=== PATIENT | female | born 1980 | race African-American/Black ===

== ENCOUNTER 2025-06-03 20:40 | Emergency (ER) | payer OTHER, SELFPAY ==
--- NOTE | ~2025-06-03 | CT_ITS ---
EXAMINATION: CT brain wo con DATE: 06/04/2025 00:29 INDICATION: Headache. Neck pain radiating to right arm. TECHNIQUE: Computed tomography (CT) of the head was performed without intravenous contrast. The dose- length product was 681.00 mGy-cm. Automated exposure control and iterative reconstruction technique w ere employed. COMPARISON: None FINDINGS: Status post suboccipital craniotomy with associated surgical changes. Brain parenchymal vol ume is otherwise unremarkable. No acute intracranial hemorrhage, infarction, mass or mass effect. No ventriculomegaly or midline shift. Basilar cisterns are patent. Paranasal sinuses and mastoids are pn eumatized. IMPRESSION: 1. No acute intracranial abnormality. Reviewed, dictated and finalized at location A.
--- NOTE | ~2025-06-03 | CT_ITS ---
EXAMINATION: CT cervical spine wo con DATE: 06/04/2025 00:30 INDICATION: Neck pain. Headache. TECHNIQUE: Computed tomography (CT) of the cervical spine was performed without intravenous contrast. The dose-length product was 334 mGy-cm. Automated exposure control and iterative reconstruction tech nique were employed. COMPARISON: None FINDINGS: Status post suboccipital craniotomy with posterior decompression of C1. Straightening of ce rvical lordosis. Vertebral body heights are maintained. No acute fracture, subluxation or dislocation . No evidence for perched facet. Odontoid process is normal. Craniovertebral junction within normal l imits. Thyroid gland grossly unremarkable. There is cervical lymphadenopathy, likely reactive. There is an anterior mediastinal soft tissue, nonspecific. Lung apices are normal. There is mild multilevel uncinate degenerative change. Mild levocurvature of the cervical spine. IMPRESSION: 1. No acute abnormality of the cervical spine. Reviewed, dictated and finalized at location A.
--- OUTSIDE RECORDS SUMMARY | 2025-06-03 20:43 | XMS_ITS | Clinical Summary ---
Author Organization [facility] Address [address] [place] [address] Phone Care Team Providers Care Senior Ios Developer Name Role Phone Rand Field APRN, WATERPROOFER HELPER Unavailable + [phone] Favian Blanton MD Unavailable [phone] Christiano Camacho PAC Primary Care Provider + [phone] Juancho Smith MD Unavailable [phone] Allergies Active Allergy Reactions Criticality Noted Date Comments Diphenhydramine Itching,Rash 06/26/2023 Fentanyl Other (see Comments) Low 05/31/2021 Sumatriptan Hives,Rash,Swelling High 01/22/2017 Iodinated Contrast Media Swelling,Hives, Shortness of Breath,Other (see Comments) High 05/23/2015 Morphine Hives,Itching,Other (see Comments) High 05/18/2017 Headache Metoclopramide Hives 07/10/2023 Ketorolac Tromethamine Hives,Itching High 05/18/2017 Medications ondansetron (ZOFRAN-ODT) 4 MG TABLET DISPERSIBLEIndic ations:Migraine without status migrainosus, not intractable, unspecified migraine type Take 1 Tablet by mouth every 8 hours as needed for Nausea - 1st line. 30 Tablet 1 3 Active traMADol (ULTRAM) 50 MG TabletIndication s:Migraine without status migrainosus, not intractable, unspecified migraine type Take 1 Tablet by mouth every 8 hours as needed for Severe pain. 30 Tablet 3 Active Additional Information Patient taking differently:50 mg Oral2 TIMES DAILY, Reported on 02/05/2024 senna 8.6 MG TabletIndication s:Drug-induced constipation Take 1 Tablet by mouth daily as needed for Constipation - 1st line. 30 Tablet 4 Active topiramate (TOPAMAX) 25 MG TabletIndication s:Chronic migraine without aura, with intractable migraine, so stated, with status migrainosus TAKE 1 TABLET BY MOUTH TWICE DAILY 60 Tablet 4 Active methylPREDNISolo ne (MEDROL DOSPACK) 4 MG Tablet Therapy PackIndications: Chronic migraine without aura, with intractable migraine, so stated, with status migrainosus Take 1 Tablet by mouth See Admin Instructions. 6 p.o day one, 5 p.o. Day two, 4 p.o. Day three, 3 p.o. Day 4, 2 p.o. Day 5, 1 p.o. Day 6 21 Tablet 4 Active divalproex (DEPAKOTE) 125 MG Tablet Delayed ResponseIndicati ons:Chronic migraine without aura, with intractable migraine, so stated, with status migrainosus,Othe r generalized epilepsy, not intractable, without status epilepticus Take 1 Tablet by mouth in the morning and at bedtime. 270 Tablet 3 4 Active Allergy Relief 10 MG TabletIndication s:Non-seasonal allergic rhinitis, unspecified trigger TAKE ONE TABLET BY MOUTH DAILY 30 Tablet 4 Active Active Problems Problem Noted Date Diagnosed Date Anemia 04/18/2024 Thalassemia 04/18/2024 History of Cristian-en-Y gastric bypass 06/26/2023 Hypertension 06/26/2023 Overview (06/26/2023): Hypertension Seizure disorder 06/26/2023 Syncope 12/03/2020 Iron deficiency anemia 12/03/2020 Menorrhagia with regular cycle 12/03/2020 Periumbilical mass 12/03/2020 Bipolar affective disorder, current episode mixe d 10/05/2020 Depression 10/05/2020 Anxiety 10/05/2020 Nonintractable epilepsy without status epileptic us 10/05/2020 Migraine without status migrainosus, not intract able 10/05/2020 Chronic low back pain 10/05/2020 Schizoaffective disorder, bipolar type 9 Resolved Problems Problem Noted Date Diagnosed Date Resolved Date Dizziness 12/03/2020 06/26/2023 Generalized abdominal pain 12/03/2020 0 06/26/2023 Encounters Date Type Department Care Team Description 05/30/2025 [facility] [address] [place] [address] Christiano Camacho, PAC from Last 3 Months Immunizations Immunization Administration Dates Next Due MMR Vaccine 11/16/1993 TD VACCINE 11/16/1993 Family History Medical History Relation Name Comments No Known Problems Father No Known Problems Maternal Grandfather Diabetes Maternal Grandmother Hypertension Maternal Grandmother Lupus Maternal Grandmother Hypertension Mother Stroke Mother mini stroke No Known Problems Paternal Grandfather No Known Problems Paternal Grandmother No Known Problems Sister Relation Name Status Comments Father Alive Maternal Grandfather Maternal Grandmother Alive Mother Alive Paternal Grandfather Paternal Grandmother Sister Alive Social History Tobacco Use Types Packs/Day Years Used Date Smoking Tobacco: Never Smokeless Tobacco: Never Tobacco Cessation:Counseling Given: Not Answered Alcohol Use Standard Drinks/Week Comments No 0 (1 standard drink = 0.6 oz pur e alcohol) PHQ-2 Answer Date Recorded PHQ-2 Score 1 07/16/2019 Education Answer Date Recorded What is the highest level of school you have completed or the highest degree you have received? Some college, no degree 10/01/2020 Sexually Active Control Partners Comments Not Currently Comments No Sex and Gender Information Value Date Recorded Sex Assigned at Female 06/26/2023 10:42 AM CDT Legal Sex Female 8:56 PM CDT Gender Identity Female 06/26/2023 10:42 AM CDT Sexual Orientation Not on file Occupation Industry Job Start Date Job End Date Unemployed Not on file Not on file Not on file Last Filed Vital Signs Vital Sign Reading Time Taken Comments Blood Pressure 125/81 05/20/2024 9:40 AM CDT Pulse 67 05/20/2024 9:40 AM CDT Temperature 36.6 C (97.8 F) 05/20/2024 9:40 AM CDT Respiratory Rate 16 05/20/2024 9:40 AM CDT Oxygen Saturation 100% 05/20/2024 9:40 AM CDT Inhaled Oxygen Concentration - - Weight 77.1 kg (170 lb) 06/04/2024 11:06 AM CDT per patient Height 162.6 cm (5' 4) 06/04/2024 11:06 AM CDT Body Mass Index 29.18 06/04/2024 11:06 AM CDT Plan of Treatment Health Maintenance Due Date Last Done Comments Hepatitis C Virus (HCV) Screening 1978 Mammogram 1978 TdaP Immunization 1978 Meningococcal Immunization ( ACWY) (1 - Risk 2-dose series) 1980 Hepatitis B Immunization (1 of 3 - 19+ 3-dose series) 1997 Pneumococcal Immunization Co mbined (1 of 2 - PCV) 1997 Pap Smear 1999 Cervical Cancer Screening (CCS) 2008 HPV/Cotest 2008 Discussion re Starting/Frequ ency of Mammograms 2018 Cologuard 2023 Immunochemical Fecal Occult Blood 2023 021 SARS-COV-2 Immunization ( season) 2024 Influenza Immunization (#1) 2025 Colonoscopy 02/24/2031 02/24/2021 Colorectal Cancer Screening 02/24/2031 Respiratory Syncytial Virus (RSV) Immunization (Adult) (1 - 1-dose 75+ series) 2053 DTaP/Tdap/Td Immunization Discontinued 11/16/1993 Human Papillomavirus (HPV) Immunization Aged Out No longer eligible b ased on patient's age to complete this topic Rotavirus Immunization Aged Out No lo nger eligible based on patient's age to complete this topic Insurance MEDICAID [place] Advance Directives Documents on File Type Date Recorded Patient Aerospace Project Engineer Expl anation POLST/POST/SC DNR 04/16/2019 3:39 AM POLST (08-07-2015) POLST/POST/SC DNR 03/08/2019 3:43 AM polst 03/07/2019 * Full Code (Latest Code Status on File) Date Activated Date Inactivated Comments 04/16/2019 5:35 AM 04/18/2019 4:04 PM * Full Code Date Activated Date Inactivated Comments 11/12/2017 2:37 PM 11/14/2017 5:12 PM CPR-Full Tomer atment: FULL ARREST: Attempt Resuscitation/CPR wit intubation and mechanical ventilation. PRE-ARREST: Use entire range of life support measures to stabilize the patient. Care Teams Senior Ios Developer Relationship Specialty Start Date End Date Christiano Camacho, PAC [address] [place] [address] PCP - General Physician Jd Edwards Consultant 02/05/24 Rand Field, OPERATIONS RESEARCH SCIENTIST, WATERPROOFER HELPER [address] [place] [address] Nurse Practitioner Advanced Practice Nurse 12/11/23 Favian Blanton MD [address] [place] [address] Consulting Physician Neurology 08/22/23 Juancho Smith MD [address] [address] Consulting Physician General Surgery 05/22/24
--- OUTSIDE RECORDS SUMMARY | 2025-06-03 20:43 | XMS_ITS | Clinical Summary ---
Author Organization [facility] Address [address] [place] [address] Care Team Providers Care Rn Acls Name Role Phone Unavailable Primary Care Provider Unavailabl e Source Comments [facility],non-owned Affiliates and Associated Physician Practices is amultiple site organization consisting of ambulatory clinics and hospital sitesin [place], [place], [place] and [place]. This disclosure is being madepursuant to the Care Everywhere program and may not contain all information available regarding this patient. Last updated 18.[facility] [employer] Allergies Active Allergy Reactions Criticality Noted Date Comments Sumatriptan Rash Medium 12/26/2013 Contrast-Iodinated Agents For Ct/Other 08/06/2015 Ketorolac 01/30/2015 Medications * Be aware that medications may not be up to date on this document. Alwaysverify current medications with the patient. diclofenac sodium EC (VOLTAREN) 75 MG tablet Take 1 Tab by mouth 2 times daily. 20 Tab 0 02/01/2015 Active famotidine (PEPCID) 20 MG tablet Take 1 Tab by mouth 2 times daily 20 Tab 0 08/19/2015 Active metoclopramide, disintegrating, (METOZOLV ODT) 10 MG tablet Take 1 Tab by mouth every 6 hours as needed for Nausea/Vomi ting 10 Tab 0 08/19/2015 Active Social History Tobacco Use Types Packs/Day Years Used Date Smoking Tobacco: Never Smokeless Tobacco: Never Alcohol Use Standard Drinks/Week Comments No 0 (1 standard drink = 0.6 oz pur e alcohol) Comments Unknown Sex and Gender Information Value Date Recorded Sex Assigned at Female 04/10/2024 3:58 PM CDT Legal Sex Female 3:02 AM RAG COLLECTOR Gender Identity Female 04/10/2024 3:58 PM CDT Sexual Orientation Not on file Last Filed Vital Signs Vital Sign Reading Time Taken Comments Blood Pressure 136/85 08/19/2015 7:58 PM CDT Pulse 67 08/19/2015 7:51 PM CDT Temperature 37 C (98.6 F) 08/19/2015 11:23 AM CDT Respiratory Rate 20 08/19/2015 7:51 PM CDT Oxygen Saturation 99% 08/19/2015 7:14 PM CDT Inhaled Oxygen Concentration - - Weight 81.6 kg (180 lb) 08/06/2015 8:59 AM CDT Height 162.6 cm (5' 4.02) 08/06/2015 8:59 AM CD T Body Mass Index 30.88 08/06/2015 8:59 AM CDT Plan of Treatment Health Maintenance Due Date Last Done Comments COLOGUARD (AGES 45-75) - COL ON CA SCREENING 1978 COLON MONITORING 1978 COLONOSCOPY - COLON CA SCREENING 1978 CT COLONOGRAPHY - COLON CA SCREENING 1978 Colorectal Cancer Screening 1978 FIT - COLON CA SCREENING 1978 FLEX SIG - COLON CA SCREENING 1978 LIPID TESTING 1978 MAMMOGRAM 1978 HIV SCREENING 1993 HEPATITIS C SCREENING 10/31/1996 DTAP/TDAP/TD VACCINES (1 - Tdap) 1997 HEPATITIS B VACCINE (1 of 3 - 19+ 3-dose series) 1997 PAP SMEAR 1999 COVID-19 VACCINE (1 - 2023-2 5 season) 2024 DEPRESSION SCREENING 11/13/2024 INFLUENZA VACCINE (#1) 2025 ZOSTER VACCINE (1 of 2) 2028 HIB VACCINE Aged Out No longer eligi ble based on patient's age to complete this topic HPV VACCINE Aged Out No longer eligi ble based on patient's age to complete this topic MENINGOCOCCAL (Group B) VACC INE SHARED DECISION-MAKING Aged Out No longer eligibl e based on patient's age to complete this topic MENINGOCOCCAL GROUPS A/C/Y/W VACCINE Aged Out No longer eligible b ased on patient's age to complete this topic PNEUMOCOCCAL VACCINE Aged Out No long er eligible based on patient's age to complete this topic Insurance MEDICAID - [place] MEDICAID - [facility]
--- OUTSIDE RECORDS SUMMARY | 2025-06-03 20:43 | XMS_ITS | Referral Summary ---
Author Organization [facility] Address [address] [place] [address] Care Team Providers Care Straw Hat Brim Cutter Operator Name Role Phone Evangelista Wake[place] MD Unavailable [phone] Stanford Meza MD Unavailable [phone] Luis Aden MD Unavailable [phone] Naima Sarkar MD Primary Care Provider [phone] Encounters Date Type Department Care Team Description 04/11/2025 9:26 PM CDT - 04/12/2025 1:37 AM CDT Emergency [facility] Emergency Department [address] [place] [address] Kevon Solis MD Nonintractable headache, unspecified chronicity pattern, unspecified headache type (Primary Dx); Neck pain Discharge Disposition: Discharge to home or self care 04/02/2025 Telephone [facility] [address] [place] [address] Medical Office [address] [place] [address] Brandon Saldana MA 03/28/2025 Telephone [facility] Scheduling [address] [place] [address] Eleonora Baltazar from Last 3 Months Allergies Active Allergy Reactions Criticality Noted Date Comments Diphenhydramine Itching,Rash Medium 06/26/2023 Fentanyl Headache,Other (See comments) Low 05/31/2021 Cyclobenzaprine Headache Low 07/09/2023 Iodinated Contrast Media Hives,Shortness of breath,Swelling,Hea dache,Other (See comments) High 05/23/2015 Ketamine Shortness of breath High 07/09/2023 Ketorolac Hives,Itching,Other (See comments),Rash High 07/09/2023 Metoclopramide Hives Medium Morphine Headache,Itching Medium 05/11/2018 Sumatriptan Other (See comments),Swelling, Shortness of breath High 04/07/2020 Reaction: swelling, bumps, , Reaction: swelling, bumps, , , , , Unclassified Drug Dizziness,Headache Low 09/19/2023 DEPARADOL Medications loratadine (CLARITIN) 10 mg tablet Take 1 tablet (10 mg total) by mouth as needed 08/23/20 23 Active polyethylene glycol (MIRALAX) 17 gram/dose bulk powder Take 17 g by mouth as needed Active acetaminophen 500 mg capsule Take 2 capsules (1,000 mg total) by mouth every 6 (six) hours 10/01/20 23 Active senna-docusate (PERICOLACE) 8.6-50 mg Take 1 tablet by mouth daily 90 tablet 10/01/20 23 Active ondansetron ODT (ZOFRAN-ODT) 4 mg disintegrating tablet Take 1 tablet (4 mg total) by mouth every 8 (eight) hours as needed for nausea or vomiting 30 tablet 10/01/20 23 Active Additional Information Patient not taking.Reported on 10/03/2024 lisinopriL (PRINIVIL,ZESTRIL) 10 mg tablet Take 1 tablet (10 mg total) by mouth 2 (two) times a day 01/31/20 24 Active topiramate (TOPAMAX) 25 mg tablet Take 1 tablet (25 mg total) by mouth 2 (two) times a day 12/11/19 24 Active FeroSuL 325 mg (65 mg iron) tablet 11/30/19 24 Active amitriptyline (ELAVIL) 25 mg tablet Take 1 tablet (25 mg total) by mouth nightly as needed for sleep 01/29/20 24 Active naloxone (NARCAN) 4 mg/actuation spray,non-aerosol Administer 1 spray into affected nostril(s) as needed for opioid reversal or respiratory depression Call 911. Administer a single spray in one nostril. Repeat every 3 minutes as needed if no or minimal response. 2 each 02/01/20 24 Active Additional Information Patient not taking.Reported on 10/03/2024 methocarbamoL (ROBAXIN) 500 mg tablet Take 1 tablet (500 mg total) by mouth 2 (two) times a day 20 tablet 04/12/20 25 Active Active Problems Problem Noted Date Diagnosed Date Chiari I malformation 09/29/2023 Spondylosis of lumbar region without myelopathy or radiculopathy 09/07/2023 Chiari malformation type I 08/25/2023 History of Chiari malformation 07/06/2023 Anemia 05/31/2021 Menorrhagia with regular cycle 12/03/2020 Periumbilical mass 12/03/2020 Syncope 12/03/2020 Anxiety 10/05/2020 Bipolar affective disorder, current episode mixe d 10/05/2020 Nonintractable epilepsy without status epileptic us 10/05/2020 Chronic recurrent major depressive disorder 03/14 Migraine without aura and responsive to treatmen t 04/07/2020 Essential hypertension 03/23/2020 Overview (07/09/2023): Hypertension Paranoid schizophrenia 03/23/2020 Vitamin D deficiency 12/03/2019 Allergic rhinitis 12/03/2019 Seizure disorder 10/30/2019 Depression 10/30/2019 Gastroesophageal reflux disease 10/30/2019 Migraine 10/30/2019 Schizoaffective disorder, bipolar type 9 Microcytic anemia 05/11/2018 Sickle cell trait 08/28/2015 Constipation 08/28/2015 H/O gastric bypass 08/28/2015 Pain of upper abdomen 08/27/2015 Iron deficiency anemia 08/27/2015 Incisional hernia 02/21/2013 Overview (02/17/2017): Incisional hernia Chest pain Vitamin B12 deficiency History of Cristian-en-Y gastric bypass Acute cystitis without hematuria Enterocutaneous fistula Resolved Problems Problem Noted Date Diagnosed Date Resolved Date Lumbar radiculopathy 09/16/2021 023 Insomnia secondary to chronic pain 09/16/2021 09/07/2023 Arthritis of left sacroiliac joint 04/07/2020 09/07/2023 Cervicalgia 04/07/2020 09/07/2023 Pain of left lower leg 04/07/202009/07 Osteoarthritis 12/03/2019 09/07/2023 Lumbago 10/30/2019 09/07/2023 Obesity 10/24/2014 09/07/2023 Social History Tobacco Use Types Packs/Day Years Used Date Smoking Tobacco: Never Passive Smoke Exposure: Never Smokeless Tobacco: Never Tobacco Cessation:Counseling Given: Not Answered Alcohol Use Standard Drinks/Week Comments No 0 (1 standard drink = 0.6 oz pur e alcohol) AUDIT-C Answer Date Recorded Q1: How often do you have a drink containing alc ohol? Never 09/29/2023 Average Number of Drinks Not on file 023 Frequency of Binge Drinking Not on file 09/13 PHQ-2 Answer Date Recorded PHQ-2 Total Score (If total score is 3 or more points, staff should administer the PHQ-9) 0 03/28/2024 PHQ-9 Answer Date Recorded PHQ-9 Total Score 3 03/28/2024 Personal Safety Answer Date Recorded Have you ever been in or are you currently in a harmful physical or emotional relationship or is someone making you feel afraid or unsafe? Denies 04/11/2025 Comments No Sex and Gender Information Value Date Recorded Sex Assigned at Not on file Legal Sex Female 12:40 AM WALLPAPERER HELPER Gender Identity Female 08/09/2023 6:35 PM CDT Sexual Orientation Ortega 08/09/2023 6: 35 PM CDT Last Filed Vital Signs Vital Sign Reading Time Taken Comments Blood Pressure 136/87 04/12/2025 1:35 AM CDT Pulse 76 04/12/2025 1:35 AM CDT Temperature 37.1 C (98.8 F) 04/12/2025 1:35 AM CDT Respiratory Rate 18 04/12/2025 1:35 AM CDT Oxygen Saturation 100% 04/12/2025 1:35 AM CDT Inhaled Oxygen Concentration - - Weight 83.9 kg (185 lb) 04/11/2025 6:55 PM CDT Height 162.6 cm (5' 4) 10/03/2024 9:11 AM WALLPAPERER HELPER Body Mass Index 31.76 10/03/2024 9:11 AM WALLPAPERER HELPER Plan of Treatment Not on file Medical Devices Implanted Type Area Engagement Quality Consultant Device Identifier Shelf Expiration Date Model / Serial / Lot [employer]pack Inc Graft Tissue Accelular Matrix Dermis Regn Medium Alloderm Select 4x7cm [id number] [id number] - [id number] Implanted:Qty: 1 on 09/29/2023 by Luis Aden MD at [facility] N/A: [email or web address] [id number] 07/13/2025 [id number] / [id number] Procedures Procedure Name Priority Date/Time Associated Diagnosis Comments CT HEAD AND CERVICAL SPINE WO CONTRAST ED 04/11/2025 7:19 PM CDT from Last 3 Months Results * CT Head and Cervical Spine WO Contrast (04/11/2025 7:19 PM CDT) Anatomical Region Laterality Modality Head and Neck N/A Computed Tomogra phy 04/11/2025 8:29 PM CDT Impressions 04/11/2025 8:29 PM CDT 1. No acute intracranial process. 2. No evidence of acute fracture in the cervical spine. Electronically signed by: Kia Fragoso M.D. Narrative 04/11/2025 8:29 PM CDT EXAMINATION: 1. CT head without contrast 2. CT of the cervical spine without contrast HISTORY: Headache TECHNIQUE: CT of the head was performed with images acquired from skull base to vertex without intravenous contrast. CT of the cervical spine was performed according to the standard protocol without intravenous contrast. COMPARISON: Brain MRI dated 07/19/2024 and cervical spine MRI dated 07/28/2023 FINDINGS: HEAD: There is no acute intracranial hemorrhage. Ventricles are of normal size and morphology. No mass effect or midline shift is present. The valadez-white matter differentiation is normal. The visualized portions of the orbits are normal. The visualized portions of the mastoids are normal. The visualized portions of the paranasal sinuses are normal. No fractures are identified. CERVICAL SPINE: Postsurgical changes of suboccipital craniectomy and decompression. The alignment of the cervical spine is normal. There is no acute fracture. Vertebral bodies are normal in height without compression fractures. Multilevel disc bulge with moderate disc height loss at C4-C5 and C5-C6. The craniocervical junction is normal. Limited views of the skull base appear normal. The sphenoid sinus is well aerated. No soft tissue abnormality is identified. Procedure Note Kia Fragoso MD - 04/11/2025 EXAMINATION: 1. CT head without contrast 2. CT of the cervical spine without contrast HISTORY: Headache TECHNIQUE: CT of the head was performed with images acquired from skull base to vertex without intravenous contrast. CT of the cervical spine was performed according to the standard protocol without intravenous contrast. COMPARISON: Brain MRI dated 07/19/2024 and cervical spine MRI dated 07/28/2023 FINDINGS: HEAD: There is no acute intracranial hemorrhage. Ventricles are of normal size and morphology. No mass effect or midline shift is present. The valadez-white matter differentiation is normal. The visualized portions of the orbits are normal. The visualized portions of the mastoids are normal. The visualized portions of the paranasal sinuses are normal. No fractures are identified. CERVICAL SPINE: Postsurgical changes of suboccipital craniectomy and decompression. The alignment of the cervical spine is normal. There is no acute fracture. Vertebral bodies are normal in height without compression fractures. Multilevel disc bulge with moderate disc height loss at C4-C5 and C5-C6. The craniocervical junction is normal. Limited views of the skull base appear normal. The sphenoid sinus is well aerated. No soft tissue abnormality is identified. IMPRESSION: 1. No acute intracranial process. 2. No evidence of acute fracture in the cervical spine. Electronically signed by: Kia Fragoso M.D. Devon Whittington MD IMG CT PROCEDURES Final Re sult from Last 3 Months Insurance ID[place] [id number] [place] [address] [id number] [place] [address] Advance Directives For more information, please contact: [phone] * Full Code (Latest Code Status on File) Date Activated Date Inactivated Comments 09/29/2023 12:17 PM 10/01/2023 6:01 PM * Full Code Date Activated Date Inactivated Comments 05/31/2021 8:48 PM 06/05/2021 5:13 PM * Full Code Date Activated Date Inactivated Comments 05/11/2018 1:16 AM 05/15/2018 11:47 PM Care Teams Straw Hat Brim Cutter Operator Relationship Specialty Start Date End Date Naima Sarkar MD [address] [place] [address] PCP - General Internal Medicine 12/13/24 Evangelista Wakefield MD Site Foreman Obstetrics and Gynecology 05/11/18 Stanford Meza MD Surgeon General Surgery 06/05/21 Luis Aden MD Consulting Physician Neurosurgery 07/26/23
--- OUTSIDE RECORDS SUMMARY | 2025-06-03 20:43 | XMS_ITS | Encounter Summary ---
Author Organization [facility] Address [address] [place] [address] Phone Care Team Providers Care Stone Rubber Name Role Phone Rand Field APRN, JOS Unavailable + [phone] Favian Blanton MD Unavailable +[phone] Christiano Camacho PAC Primary Care Provider + [phone] Juancho Smith MD Unavailable [phone] Reason for Visit * Reason Comments Medication Refill Encounter Details Date Type Department Care Team (Late st Contact Info) Description [facility]/17[facility] [place] #2 [place] [phone] Rand Field APRN, CHEMICAL TREATMENT OPERATOR #2 [place] [address] Medication Refill Social History Tobacco Use Types Packs/Day Years [...] file Not on file Not on file documented as of this encounter Plan of Treatment Not on file documented as of this encounter Visit Diagnoses Not on filedocumented in this encounter Additional Health Concerns Assessment Noted Time PHQ-9 Depression Total Score: 1 03/15/20 19 10:00 AM CDT documented as of this encounter Care Teams Stone Rubber Relationship Specialty Start Date End Date Christiano Camacho, PAC [address] [place] [address] PCP - General Physician Ethylene Oxide Panelboard Operator 02/05/24 Rand Field, THEATER EDUCATION TEACHER, CHEMICAL TREATMENT OPERATOR [address] [place] [address] Nurse Practitioner Advanced Practice Nurse 12/11/23 Favian Blanton MD #2 [place] [address] Consulting Physician Neurology 08/22/23 Juancho Smith MD #[address] [address] Consulting Physician General Surgery 05/22/24 documented as of this encounter
--- OUTSIDE RECORDS SUMMARY | 2025-06-03 20:43 | XMS_ITS | Encounter Summary ---
Author Organization [facility] Address [address] [place] [address] Phone Care Team Providers Care Mobile Sales Expert Name Role Phone Brina Stiles Christopher CAAL, ASSET ANALYST Primary Care Provider Gwen Cisneros MD Primary Care Provider + [phone] Christiano Camacho PAC Primary Care Provider + [phone] Rand Field APRN, SECURITY ENGINEER Unavailable + [phone] Favian Blanton MD Unavailable +[phone] Christiano Camacho PAC Primary Care Provider + [phone] Juancho Smith MD Unavailable [phone] Reason for Visit * Reason Comments Medication Refill Encounter Details Date Type Department Care Team (Late st Contact Info) Description 09/08/2020 [facility]ill [facility] - [place] #1 [place] [address] Favian Blanton MD [address]2 [place] [address] Medication Refill Social History Tobacco Use Types Packs/Day Years Used Date Smoking Tobacco: Never Smokeless Tobacco: Never Alcohol Use Standard Drinks/Week Comments No 0 (1 standard drink = 0.6 oz pur e alcohol) PHQ-2 Answer Date Recorded PHQ-2 Score 1 07/16/2019 Comments No Sex and Gender Information Value Date Recorded Sex Assigned at Female 06/26/2023 10:42 AM CDT Legal Sex Female 8:56 PM CDT Gender Identity Female 06/26/2023 10:42 AM CDT Sexual Orientation Not on file documented as of this encounter Plan of Treatment Not on file documented as of this encounter Visit Diagnoses Diagnosis Migraine without status migrainosus, not intractable, unspecified migraine type documented in this encounter Additional Health Concerns Assessment Noted Time PHQ-9 Depression Total Score: 1 03/15/20 19 10:00 AM CDT documented as of this encounter Care Teams Mobile Sales Expert Relationship Specialty Start Date End Date Brina Stiles, NATURAL RESOURCE OFFICER, ASSET ANALYST [address] [place] [address] PCP - General Family Medicine 01/03/20 09/27/20 Gwen Cisneros MD [address] [place] [address] PCP - General Family Medicine 09/28/20 06/25/23 Christiano Camacho, PAC [address] [place] [address] PCP - General Physician Safety Person 06/26/23 01/31/24 Christiano Camacho, PAC [address] [place] [address] PCP - General Physician Safety Person 02/05/24 Rand Field, NATURAL RESOURCE OFFICER, SECURITY ENGINEER [address] [place] [address] Nurse Practitioner Advanced Practice Nurse 12/11/23 Favian Blanton MD #2 [place] [address] Consulting Physician Neurology 08/22/23 Juancho Smith MD #[address] [address] Consulting Physician General Surgery 05/22/24 documented as of this encounter
--- OUTSIDE RECORDS SUMMARY | 2025-06-03 20:43 | XMS_ITS | Encounter Summary ---
Author Organization [facility] Address [address] [place] [address] Phone Care Team Providers Care Lead Teacher Name Role Phone Gwen Cisneros MD Primary Care Provider + [phone] Christiano Camacho PAC Primary Care Provider + [phone] Rand Field APRN, SMALL EQUIPMENT OPERATOR Unavailable + [phone] Favian Blanton MD Unavailable +[phone] Christiano Camacho PAC Primary Care Provider + [phone] Juancho Smith MD Unavailable [phone] Reason for Visit * Reason Comments Medication Refill Encounter Details Date Type Department Care Team (Late st Contact Info) Description 01/18/2021 [facility]ill [facility] - [place] #1 [facility] [place] [address] Favian Blanton MD [address]2 [place] [address] Medication Refill Social History Tobacco Use Types [...] have received? Some college, no degree 10/01/2020 Comments No Sex and Gender Information Value [...] documented as of this encounter Care Teams Lead Teacher Relationship Specialty Start Date End Date Gwen Cisneros MD [address] [place], [place] [id number] PCP - General Family Medicine 09/28/20 06/25/23 Christiano Camacho PAC [address] [place] [address] PCP - General Physician Software Applications Architect 06/26/23 01/31/24 Christiano Camacho PAC [address] [place] [address] PCP - General Physician Software Applications Architect 02/05/24 Rand Field, VEHICLE LEASING AND RENTAL MANAGER, SMALL EQUIPMENT OPERATOR [address] [place] [address] Nurse Practitioner Advanced Practice Nurse 12/11/23 Favian Blanton MD [address] [place] [address] Consulting Physician Neurology 08/22/23 Juancho Smith MD [address] [place] [address] Consulting Physician General Surgery 05/22/24 documented as of this encounter
--- OUTSIDE RECORDS SUMMARY | 2025-06-03 20:43 | XMS_ITS | Encounter Summary ---
Author Organization [facility] Address [address] [place] [address] Phone Care Team Providers Care Global Director Air And Climate Change Name Role Phone Gwen Cisneros MD Primary Care Provider + [phone] Christiano Camacho PAC Primary Care Provider + [phone] Rand Field APRN, BOOM MAN Unavailable + [phone] Favian Blanton MD Unavailable +[phone] Christiano Camacho PAC Primary Care Provider + [phone] Juancho Smith MD Unavailable [phone] Reason for Visit * Reason Comments Medication Refill Encounter Details Date Type Department Care Team (Late st Contact Info) Description 03/15/2021 [facility]ill [facility] - [facility]rology - [place] #1 [place] [address] Favian Blanton MD [address]2 [place] [address] Medication Refill Social History Tobacco Use Types [...] file Not on file Not on file COVID-19 Exposure Response Date Recorded In the last month, have you been in contact with someone who was confirmed or suspected to have Coronavirus / COVID-19? No / Unsure 02/24/2021 11:29 PM CDT documented as of this encounter Plan of Treatment Not on file documented as of this encounter Visit Diagnoses Diagnosis Migraine without status migrainosus, not intractable, unspecified migraine type documented in this encounter Additional Health Concerns Assessment Noted Time PHQ-9 Depression Total Score: 1 03/15/20 19 10:00 AM CDT documented as of this encounter Care Teams Global Director Air And Climate Change Relationship Specialty Start Date End Date Gwen Cisneros MD [address] [place], [place] [id number] PCP - General Family Medicine 09/28/20 06/25/23 Christiano Camacho PAC [address] [place] [address] PCP - General Physician Project Specialist 06/26/23 01/31/24 Christiano Camacho PAC [address] [place] [address] PCP - General Physician Project Specialist 02/05/24 Rand Field APRN, BOOM MAN [address] [place] [address] Nurse Practitioner Advanced Practice Nurse 12/11/23 Favian Blanton MD #2 [place] [address] Consulting Physician Neurology 08/22/23 Juancho Smith MD [address] [address] Consulting Physician General Surgery 05/22/24 documented as of this encounter
--- OUTSIDE RECORDS SUMMARY | 2025-06-03 20:43 | XMS_ITS | Encounter Summary ---
Author Organization [facility] Address [address] [place] [address] Phone Care Team Providers Care Drilling Engineering Manager Name Role Phone Gwen Cisneros MD Primary Care Provider Reason for Visit * Auth/Cert Specialty Diagnoses / Procedures Referred By Yuri mcmullen Referred To Contact Diagnoses EPIGASTRIC PAIN Procedures EGD Referral ID Status Reason Start Date Expiration Date Visits Re quested Visits Authorized [id number] 1 1 Encounter Details Date Type Department Care Team (Late st Contact Info) Description 10/27/2021 10:30 AM [facility] Hospital Encounter [facility] Periop [address] [place] [address] Enrique Hua MD [address]2 [place] [address] Social History Tobacco Use Types Packs/Day Years [...] Exposure Response Date Recorded In the last 10 days, have yo u been in contact with someone who was confirmed or suspected to have Coronavirus/COVID-19? No / Unsure 08/22/2023 12:13 PM CDT documented as of this encounter Last Filed Vital Signs Vital Sign Reading Time Taken Comments Blood Pressure - - Pulse - - Temperature - - Respiratory Rate - - Oxygen Saturation - - Inhaled Oxygen Concentration - - Weight 68.5 kg (151 lb) 10/11/2021 11:00 AM BATH STEWARD Height 162.6 cm (5' 4) 10/11/2021 11:00 AM [facility] Body Mass Index 25.92 10/11/2021 11:00 AM BATH [facility]EW[facility] documented in this encounter Miscellaneous Notes * Interdisciplinary - Fiorella, Cassie Garcia RN - 10/11/2021 11:40 AM CST [facility] GI TEACHING Patient Name: Albert Garcia Neo : 1980 CSN#: [id number] Person Educated Patient Ready to Learn Yes Teaching Method Phone Advised patient will need a covid test with in 72 hours prior to procedure and recommended to self isolate after covid test until procedure. Wear mask and social distance . Covid test on 10/29/21 at 10am. The Day of Procedure: Call your physician if your physical condition changes (cold, fever, flu). Do not come to the hospital without first calling your physician. Follow your surgeon's instructions regarding your diet, bowel prep, and medications if applicable. If your have any questions, please contact your surgeon's office. No alcohol and no smoking for 24 hrs prior to procedure if applicable. Wear comfortable, loose fitting clothing. Instruction to leave all jewelry at home including wedding/engagement rings or any body piercing jewelry. Leave all valuables at home. Children ages under 16 must be accompanied by a parent or legal guardian in the hospital at all times. Detailed instructions given for arrival location and parking. Arrive for your procedure as instructed by the [facility]. Go to Registration the morning of the procedure to check in. Arrange for a responsible person to accompany you and drive you home following your procedure. Follow directions regarding which medications to take or hold. It is very important to follow directions on diabetic medication or blood thinners from your surgeon's office. When you come to the hospital only 1 adult over the age of 16 will be allowed to accompany you to the [facility]. No children under the age of 16 will be allowed in the [facility] unless they are the patient. If the patient chooses to bring their children under the age of 16, an adult must accompany those children in the surgery waiting room and cannot leave them unattended. During the flu season: refer to the visitation restriction guidelines implemented during that season if applicable. Fall Prevention Teaching The Day of Surgery: ?? Your safety while you are in the hospital is very important to us. Following surgery, you might be at increased risk for falling for several reasons: ??? -The hospital environment is unfamiliar. It???s not the same as being at home ??? -You may be weaker than you realize. ??? -You may be connected to lines or equipment that can cause you to trip. ??? -You may be on medications that make you drowsy or dizzy. We know this can happen especially with pain medication and anesthesia. ??? We want to partner with you in the hospital to make sure you are safe ??? -Please do not feel hesitant to ask for help while in the hospital. You will -need extra help until you get stronger especially with walking and using the bathroom. ??? -Pay close attention to what the doctors and nurses tell you about your risk of falling. ??? -A fall can mean a longer hospital stay. Also, injuries from a fall can affect your health forthe rest of your life. ??? Some things the nurses may do to keep you safe are: ??? -Have you use the call light for help whenever you get out of bed. ??? -Wear non-skid slippers to keep you from slipping on the floors ??? -Use a special belt that wraps around your waist so we can help steady you when you walk ??? -Activate an alarm on your bed so we know if you are getting up in case you forget to use your call light ??? -Stay in the bathroom with you in case you become dizzy or light headed Response to Teaching: Verbalizes Understanding Patient assessed for speech/language therapist during the preop interview and appropriate interventions taken if applicable. STEWARD documented in this encounter Plan of Treatment Not on file documented as of this encounter Visit Diagnoses Not on filedocumented in this encounter Additional Health Concerns Assessment Noted Time PHQ-9 Depression Total Score: 1 03/15/20 19 10:00 AM CDT documented as of this encounter Care Teams Drilling Engineering Manager Relationship Specialty Start Date End Date Gwen Cisneros MD [address] [place] [address] PCP - General Family Medicine 09/28/20 06/25/23 documented as of this encounter
--- OUTSIDE RECORDS SUMMARY | 2025-06-03 20:43 | XMS_ITS | Encounter Summary ---
Author Organization [facility] Address [address] [place] [address] Phone Care Team Providers Care Exhibition Organiser Name Role Phone Gwen Cisneros MD Primary Care Provider + [phone] Christiano Camacho PAC Primary Care Provider + [phone] Rand Field APRN, APPLICATIONS ENGINEER MANUFACTURING Unavailable + [phone] Favian Blanton MD Unavailable [phone] Christiano Camacho PAC Primary Care Provider + [phone] Juancho Smith MD Unavailable [phone] Reason for Visit * Reason Comments Medication Refill Encounter Details Date Type Department Care Team (Late st Contact Info) Description 09/27/2021 Refill [facility] #2 [place] [address] Favian Blanton MD #2 [place] [address] Medication Refill Social History Tobacco Use Types [...] documented as of this encounter Care Teams Exhibition Organiser Relationship Specialty Start Date End Date Gwen Cisneros MD [address] [place] [address] PCP - General Family Medicine 09/28/20 06/25/23 Christiano Camacho PAC [address] [place] [address] PCP - General Physician Manager Training 06/26/23 01/31/24 Christiano Camacho, PAC [address] [place] [address] PCP - General Physician Manager Training 02/05/24 Rand Field APRN, APPLICATIONS ENGINEER MANUFACTURING #[address] [place] [address] Nurse Practitioner Advanced Practice Nurse 12/11/23 Favian Blanton MD #2 [place] [address] Consulting Physician Neurology 08/22/23 Juancho Smith MD [address] [address] Consulting Physician General Surgery 05/22/24 documented as of this encounter
--- OUTSIDE RECORDS SUMMARY | 2025-06-03 20:43 | XMS_ITS | Clinical Summary ---
Author Organization [facility] Address [facility] [place] [address] Care Team Providers Care Veterinary Technician Assistant Name Role Phone Evangelista Wakefield MD Unavailable [phone] Stanford Meza MD Unavailable [phone] Luis Aden MD Unavailable [phone] Naima Sarkar MD Primary Care Provider [phone] Allergies Active Allergy Reactions Criticality Noted Date [...] by mouth every 6 (six) hours 10/01/20 Active senna-docusate (PERICOLACE) 8.6-50 mg Take 1 tablet by mouth daily 90 tablet 10/01/20 Active ondansetron ODT (ZOFRAN-ODT) 4 mg disintegrating tablet Take 1 tablet (4 mg total) by mouth every 8 (eight) hours as needed for nausea or vomiting 30 tablet 10/01/20 Active Additional Information Patient not taking.Reported on [...] 09/07/2023 Lumbago 10/30/2019 09/07/2023 Obesity 10/24/2014 09/07/2023 Encounters Date Type Department Care Team Description 04/11/2025 9:26 PM CDT - 04/12/2025 1:37 AM CDT Emergency [facility] Emergency Department [address] [address] Kevon Solis MD Nonintractable headache, unspecified chronicity pattern, unspecified headache type (Primary Dx); Neck pain Discharge Disposition: Discharge to home or self care 04/02/[address] [facility] with [facility] Physicians [address] Medical Office Building [address] [place] [address] Brandon Saldana MA 03/28/2025 Telephone [facility] Scheduling [address] [place] [address] Eleonora Baltazar from Last 3 Months Surgical History Surgery Date Site/Laterality Comments HERNIA REPAIR Hernia repair SECTION section GASTRIC BYPASS 2008 Gastric bypass HERNIA REPAIR 2003 Hernia repair SECTION 2001 section OTHER SURGICAL HISTORY abdominal hernia surgery x 2 OTHER SURGICAL HISTORY 2013 repair recurrent incarcerated ventral incisional hernia OTHER SURGICAL HISTORY 2012 Complex I & D abd. wall abscess NM LAPAROSCOPY SURG CHOLECYSTECTOMY Cholecystectomy Laparoscopic - (Added by TW Conv) STOMACH SURGERY Gastric Surgery For Morbid Obesity - (Added by TW Conv) HYSTERECTOMY 08/13/2022 - 09/12/2022 Medical History Medical History Date Comments Anemia Anemia Seizure disorder (HCC) Seizure d isorder Tension headache Headache, tensi on Hx Other Medical Headache, migra ine Hypertension Hypertension Hyperlipidemia Hyperlipidemia History of Chiari malformation Motion sickness Neck pain Low back pain Chronic pain disorder Family History Medical History Relation Name Comments Hypertension Other 1 Family history of Hypertension; Migraines Other 2 Family history of Migraine; Seizures Other 3 Family history of Seizure disorder; Stroke Other 4 Family history of Stroke; Alcohol abuse Other 5 Family history of Alcoholism; Diabetes Other 6 Family history of Diabetes mellitus; Osteoarthritis Other 7 Family histor y of Osteoarthritis; Sickle cell trait Other 8 Family his tory of Sickle cell trait; Anesthesia problems Neg Hx Relation Name Status Comments Other 1 Other 2 Other 3 Other 4 Other 5 Other 6 Other 7 Other 8 Social History Tobacco Use Types Packs/Day Years [...] on file Legal Sex Female 12:40 AM AIRPLANE DISPATCHER Gender Identity Female 08/09/2023 6:35 PM CDT Sexual Orientation Ortega 08/09/2023 6: 35 PM CDT Obstetrics History Last Filed Vital Signs Vital Sign Reading [...] 162.6 cm (5' 4) 10/03/2024 9:11 AM AIRPLANE DISPATCHER Body Mass Index 31.76 10/03/2024 9:11 AM AIRPLANE DISPATCHER Plan of Treatment Health Maintenance Due Date Last Done Comments Breast Cancer Screening-Mammogram 1978 Colon Cancer Screening-Colonoscopy 1978 Hepatitis C Screening 1978 Meningococcal B Vaccine (1 of 5 - Increased Risk) 1988 DTaP/Tdap/Td Vaccine (1 - Tdap) 11/17/1993 11/16/1993 Hepatitis B Screening 1996 Regular Well Visit/Exam 18-64 1996 Pneumococcal vaccine <65 (1 of 2 - PCV) 1997 Depression Screening 03/28/2025 03/28/2024, 03/28/2024, 02/01/2024, Additional history exists Influenza Vaccine (Season Ended) 2025 HPV Vaccines Aged Out No longer eligi ble based on patient's age to complete this topic Medical Devices Implanted Type Area Pipe Bender Device Identifier Shelf Expiration Date Model / Serial / Lot [employer] Graft Tissue Accelular Matrix Dermis Regn Medium Alloderm Select 4x7cm [id number] [id number] - [id number] Implanted:Qty: 1 on 09/29/2023 by Luis Aden MD at [facility] N/A: Dura [employer] [id number] 07/13/2025 [id number] / / [id number] Procedures Procedure Name Priority Date/Time Associated [...] sult from Last 3 Months Insurance [facility] Advance Directives For more information, please contact: [phone] * Full Code (Latest Code Status on File) Date Activated Date Inactivated Comments 09/29/2023 12:17 PM 10/01/2023 6:01 PM * Full Code Date Activated Date Inactivated Comments 05/31/2021 8:48 PM 06/05/2021 5:13 PM * Full Code Date Activated Date Inactivated Comments 05/11/2018 1:16 AM 05/15/2018 11:47 PM Care Teams Veterinary Technician Assistant Relationship Specialty Start Date End Date Naima Sarkar MD [address] [place] [address] PCP - General Internal Medicine 12/13/24 Evangelista Wakefield MD Auto Winder Obstetrics and Gynecology 05/11/18 Stanford Meza MD Surgeon General Surgery 06/05/21 Luis Aden MD Consulting Physician Neurosurgery 07/26/23
--- OUTSIDE RECORDS SUMMARY | 2025-06-03 20:43 | XMS_ITS | Encounter Summary ---
Author Organization [facility] Address [address] [place] [address] Phone Care Team Providers Care Manager Education Name Role Phone Rand Field APRN, JOS Unavailable + [phone] Favian Blanton MD Unavailable +[phone] Christiano Camacho PAC Primary Care Provider + [phone] Juancho Smith MD Unavailable +[phone] Reason for Visit * Reason Comments Medication Refill Encounter Details Date Type Department Care Team (Late st Contact Info) Description 03/13/20[facility] - [place] #2 [place] [address] Rand Field APRN, OPERATING ROOM TECHNICIAN #2 [place] [address] Medication Refill Social History Tobacco Use Types [...] on file documented as of this encounter Miscellaneous Notes * Telephone Encounter - Brittany Vela RN - 03/13/2024 9:06 AM CDT Medication failed the protocol, provider to review and approve the medication order if appropriate. Requested Prescriptions Pending Prescriptions Disp Refills topiramate (TOPAMAX) 25 MG Tablet [Pharmacy Med Name: TOPIRAMATE 25MG] 60 Tablet 2 Sig: TAKE 1 TABLET BY MOUTH TWICE DAILY Not Delegated - Anticonvulsants Excluding Benzodiazepines Protocol Failed - 03/13/2024 9:04 AM Failed - This refill cannot be delegated Passed - Visit with relevant provider in past 12 months or upcoming 90 days Recent Visits Date Type Provider Dept 02/05/24 Telemedicine Rand Field APRN, [facility] Neurology [facility] 12/11/23 Telemedicine Rand Field APRN, CNS [facility] 08/22/23 Telemedicine Favian Blanton MD [facility] 06/26/23 Office Visit Christiano Camacho PAC [facility] Showing recent visits within past 365 days and meeting all other requirements Future Appointments No visits were found meeting these conditions. Showing future appointments within next 90 days and meeting all other requirements documented in this encounter Plan of Treatment Not on file documented as of this encounter Visit Diagnoses Diagnosis Chronic migraine without aura, with intractable migraine, so stated, with status migrainosus documented in this encounter Additional Health Concerns Assessment Noted Time PHQ-9 Depression Total Score: 1 03/15/20 19 10:00 AM CDT documented as of this encounter Care Teams Manager Education Relationship Specialty Start Date End Date Christiano Camacho PAC [address] [place] [address] PCP - General Physician Dance Professor 02/05/24 Rand Field APRN, OPERATING ROOM TECHNICIAN #2 [place] [address] Nurse Practitioner Advanced Practice Nurse 12/11/23 Favian Blanton MD #2 [place] [address] Consulting Physician Neurology 08/22/23 Juancho Smith MD #[address] [address] Consulting Physician General Surgery 05/22/24 documented as of this encounter
--- OUTSIDE RECORDS SUMMARY | 2025-06-03 20:43 | XMS_ITS | Encounter Summary ---
Author Organization [facility] Address [address] [place] [address] Phone Care Team Providers Care Peoplesoft Developer Name Role Phone Gwen Cisneros MD Primary Care Provider + [phone] Christiano Camacho PAC Primary Care Provider + [phone] Rand Field APRN, INTERNAL CONTROL CONSULTANT Unavailable + [phone] Favian Blanton MD Unavailable +[phone] Christiano Camacho PAC Primary Care Provider + [phone] Juancho Smith MD Unavailable [phone] Reason for Visit * Reason Comments Medication Refill Encounter Details Date Type Department Care Team (Late st Contact Info) Description 05/10/2021 Refill [facility] #2 [place] [address] Favian Blanton MD #2 [place] [address] Medication Refill Social History Tobacco Use Types [...] have Coronavirus / COVID-19? No / Unsure 04/26/2021 1:32 PM CDT documented as of this encounter Plan of Treatment Not on file documented as of this encounter Visit Diagnoses Not on filedocumented in this encounter Additional Health Concerns Assessment Noted Time PHQ-9 Depression Total Score: 1 03/15/20 19 10:00 AM CDT documented as of this encounter Care Teams Peoplesoft Developer Relationship Specialty Start Date End Date Gwen Cisneros MD [address] [place], [place] [address] PCP - General Family Medicine 09/28/20 06/25/23 Christiano Camacho, PAC [address] [place] [address] PCP - General Physician Door Worker 06/26/23 01/31/24 Christiano Camacho PAC [address] [place] [address] PCP - General Physician Door Worker 02/05/24 Rand Field APRN, INTERNAL CONTROL CONSULTANT [address] [place] [address] Nurse Practitioner Advanced Practice Nurse 12/11/23 Favian Blanton MD #2 [place] [address] Consulting Physician Neurology 08/22/23 Juancho Smith MD #[address] [address] Consulting Physician General Surgery 05/22/24 documented as of this encounter
--- OUTSIDE RECORDS SUMMARY | 2025-06-03 20:43 | XMS_ITS | Encounter Summary ---
Author Organization [facility] Address [address] [place] [address] Phone Care Team Providers Care Civil Engineering Specialist Name Role Phone Brina Stiles Christopher CAAL, OPERATIONS DISPATCHER Primary Care Provider Gwen Cisneros MD Primary Care Provider + [phone] Christiano Camacho PAC Primary Care Provider + [phone] Rand Field APRN, EDGING MACHINE CATCHER Unavailable + [phone] Favian Blanton MD Unavailable +[phone] Christiano Camacho PAC Primary Care Provider + [phone] Juancho Smith MD Unavailable [phone] Reason for Visit * Reason Comments Medication Refill Encounter Details Date Type Department Care Team (Late st Contact Info) Description 08/17/2020 [facility]ill [facility] - [facility]rology - [place] #1 [place] [address] Favian Blanton MD #2 [place] [address] Medication Refill Social History Tobacco Use Types [...] documented as of this encounter Care Teams Civil Engineering Specialist Relationship Specialty Start Date End Date Brina Stiles, AIRLINE FLIGHT ATTENDANT, OPERATIONS DISPATCHER [address] [place] [address] PCP - General Family Medicine 01/03/20 09/27/20 Gwen Cisneros MD [address] [place] [address] PCP - General Family Medicine 09/28/20 06/25/23 Christiano Camacho, PAC [address] [place] [address] PCP - General Physician Gang Vibrator Operator 06/26/23 01/31/24 Christiano Camacho, PAC [address] [place] [address] PCP - General Physician Gang Vibrator Operator 02/05/24 Rand Field, AIRLINE FLIGHT ATTENDANT, EDGING MACHINE CATCHER #2 [place] [address] Nurse Practitioner Advanced Practice Nurse 12/11/23 Favian Blanton MD #2 [place] [address] Consulting Physician Neurology 08/22/23 Juancho Smith MD #[address] [address] Consulting Physician General Surgery 05/22/24 documented as of this encounter
--- OUTSIDE RECORDS SUMMARY | 2025-06-03 20:43 | XMS_ITS | Encounter Summary ---
Author Organization [facility] Address [address] [place] [address] Phone Care Team Providers Care Customer Service Specialist Name Role Phone Gwen Cisneros MD Primary Care Provider + [phone] Christiano Camacho PAC Primary Care Provider + [phone] Rand Field APRN, KNIFE OPERATOR Unavailable + [phone] Favian Blanton MD Unavailable +[phone] Christiano Camacho PAC Primary Care Provider + [phone] Juancho Smith MD Unavailable [phone] Reason for Visit * Reason Comments Medication Refill Encounter Details Date Type Department Care Team (Late st Contact Info) Description 04/09/2021 [facility]ill [facility] - [facility]rology - [place] #1 [place] [address] Favian Blanton MD #2 [place] [address] Medication Refill Social History Tobacco Use Types [...] documented as of this encounter Care Teams Customer Service Specialist Relationship Specialty Start Date End Date Gwen Cisneros MD [address] [place] [address] PCP - General Family Medicine 09/28/20 06/25/23 Christiano Camacho PAC [address] [place] [address] PCP - General Physician Grocery Clerk Stocking 06/26/23 01/31/24 Christiano Camacho, PAC [address] [place] [address] PCP - General Physician Grocery Clerk Stocking 02/05/24 Rand Field, EXERCISER HORSE, KNIFE OPERATOR [address] [place] [address] Nurse Practitioner Advanced Practice Nurse 12/11/23 Favian Blanton MD [address]2 [place] [address] Consulting Physician Neurology 08/22/23 Juancho Smith MD [address] [address] [address] Consulting Physician General Surgery 05/22/24 documented as of this encounter
--- OUTSIDE RECORDS SUMMARY | 2025-06-03 20:43 | XMS_ITS | Encounter Summary ---
Author Organization [facility] Address [address] [place] [address] Phone Care Team Providers Care Satellite Dish Repairer Name Role Phone Brina Stiles Christopher CAAL, ACCOUNTS RECEIVABLE ACCOUNTANT Primary Care Provider Gwen Cisneros MD Primary Care Provider + [phone] Christiano Camacho PAC Primary Care Provider + [phone] Rand Field APRN, PROMOTIONS INTERN Unavailable + [phone] Favian Blanton MD Unavailable +[phone] Christiano Camacho PAC Primary Care Provider + [phone] Juancho Smith MD Unavailable [phone] Reason for Visit * Reason Comments Medication Refill Encounter Details Date Type Department Care Team (Late st Contact Info) Description 08/07/2020 [facility]ill [facility] - Neurology - [place] #1 [place] [address] Favian Blanton MD #2 [place] [address] Medication Refill Social History Tobacco [...] documented as of this encounter Care Teams Satellite Dish Repairer Relationship Specialty Start Date End Date Brina Stiles, STEEPING PRESS TENDER, ACCOUNTS RECEIVABLE ACCOUNTANT [address] [place] [address] PCP - General Family Medicine 01/03/20 09/27/20 Gwen Cisneros MD [address] [place] [address] PCP - General Family Medicine 09/28/20 06/25/23 Christiano Camacho, PAC [address] [place] [address] PCP - General Physician C.O.D. Biller 06/26/23 01/31/24 Christiano Camacho, PAC [address] [place] [address] PCP - General Physician C.O.D. Biller 02/05/24 Rand Field, STEEPING PRESS TENDER, PROMOTIONS INTERN [address] [place] [address] Nurse Practitioner Advanced Practice Nurse 12/11/23 Favian Blanton MD [address] [place] [address] Consulting Physician Neurology 08/22/23 Juancho Smith MD #[address] [address] Consulting Physician General Surgery 05/22/24 documented as of this encounter
--- OUTSIDE RECORDS SUMMARY | 2025-06-03 20:43 | XMS_ITS | Encounter Summary ---
Author Organization [facility] Address [address] [place] [address] Phone Care Team Providers Care Renal Social Worker Name Role Phone Gwen Cisneros MD Primary Care Provider + [phone] Christiano Camacho PAC Primary Care Provider + [phone] Rand Field APRN, DRUG ABUSE PROGRAM COORDINATOR Unavailable + [phone] Favian Blanton MD Unavailable +[phone] Christiaon Camacho PAC Primary Care Provider + [phone] Juancho Smith MD Unavailable [phone] Reason for Visit * Reason Comments Medication Refill Encounter Details Date Type Department Care Team (Late st Contact Info) Description 09/27/2021 Refill [facility] - Neurology - [place] #2 [place] [address] Rand Field APRN, DRUG ABUSE PROGRAM COORDINATOR [address] [place] [address] Medication Refill Social History Tobacco Use Types [...] documented as of this encounter Care Teams Renal Social Worker Relationship Specialty Start Date End Date Gwen Cisneros MD [address] [place] [address] PCP - General Family Medicine 09/28/20 06/25/23 Christiano Camacho PAC [address] [place] [address] PCP - General Physician Sample Weaver 06/26/23 01/31/24 Christiano Camacho, PAC [address] [place] [address] PCP - General Physician Sample Weaver 02/05/24 Rand Field APRN, DRUG ABUSE PROGRAM COORDINATOR [address] [place] [address] Nurse Practitioner Advanced Practice Nurse 12/11/23 Favian Blanton MD [address] [place] [address] Consulting Physician Neurology 08/22/23 Juancho Smith MD [address] [address] [address] Consulting Physician General Surgery 05/22/24 documented as of this encounter
--- OUTSIDE RECORDS SUMMARY | 2025-06-03 20:43 | XMS_ITS | Encounter Summary ---
Author Organization [facility] Address [address] [place] [address] Phone Care Team Providers Care Vault Worker Name Role Phone Brina Stiles Christopher CAAL, HISTORY INSTRUCTOR Primary Care Provider Gwen Cisneros MD Primary Care Provider + [phone] Christiano Camacho PAC Primary Care Provider + [phone] Rand Field APRN, AUTOMATION TEST DEVELOPER Unavailable + [phone] Favian Blanton MD Unavailable +[phone] Christiano Camacho PAC Primary Care Provider + [phone] Juancho Smith MD Unavailable [phone] Reason for Visit * Reason Comments Medication Refill Encounter Details Date Type Department Care Team (Late st Contact Info) Description 07/16/2020 Refill [facility] - [facility]rology - [place] [address] [place] [address] Favian Blanton MD [address]2 [place] [address] Medication Refill Social History Tobacco Use Types [...] documented as of this encounter Care Teams Vault Worker Relationship Specialty Start Date End Date Brina Stiles, DOBBY LOOM FIXER, HISTORY INSTRUCTOR [address] [place] [address] PCP - General Family Medicine 01/03/20 09/27/20 Gwen Cisneros MD [address] [place] [address] PCP - General Family Medicine 09/28/20 06/25/23 Christiano Camacho, PAC [address] [place] [address] PCP - General Physician Carbon Paste Mixer Operator 06/26/23 01/31/24 Christiano Camacho, PAC [address] [place] [address] PCP - General Physician Carbon Paste Mixer Operator 02/05/24 Rand Field, DOBBY LOOM FIXER, AUTOMATION TEST DEVELOPER [address] [place] [address] Nurse Practitioner Advanced Practice Nurse 12/11/23 Favian Blanton MD #[address] [place] [address] Consulting Physician Neurology 08/22/23 Juancoh Smith MD #[address] [address] Consulting Physician General Surgery 05/22/24 documented as of this encounter
--- OUTSIDE RECORDS SUMMARY | 2025-06-03 20:43 | XMS_ITS | Encounter Summary ---
Author Organization [facility] Address [address] [place] [address] Phone Care Team Providers Care Nurse'S Assistant Name Role Phone Brina Stiles Christopher CAAL, ASSEMBLER CLIP ON SUNGLASSES Primary Care Provider Gwen Cisneros MD Primary Care Provider + [phone] Christiano Camacho PAC Primary Care Provider + [phone] Rand Field APRN, COTTON SAMPLER Unavailable + [phone] Favian Blanton MD Unavailable +[phone] Christiano Camacho PAC Primary Care Provider + [phone] Juancho Smith MD Unavailable [phone] Reason for Visit * Reason Comments Medication Refill Encounter Details Date Type Department Care Team (Late st Contact Info) Description 06/18/2020 Refill [facility] - Neurology - [place] [address]1 [place] [address] Favian Blanton MD [address] [place] [address] Medication Refill Social History Tobacco Use Types [...] AM CDT Sexual Orientation Not on file COVID-19 Exposure Response Date Recorded In the last month, have you been in contact with someone who was confirmed or suspected to have Coronavirus / COVID-19? No / Unsure 06/04/2020 9:52 AM CDT documented as of this encounter Plan of Treatment Not on file documented as of this encounter Visit Diagnoses Diagnosis Migraine without status migrainosus, not intractable, unspecified migraine type documented in this encounter Additional Health Concerns Assessment Noted Time PHQ-9 Depression Total Score: 1 03/15/20 19 10:00 AM CDT documented as of this encounter Care Teams Nurse'S Assistant Relationship Specialty Start Date End Date Brina Stiles, FOOD ANALYST, ASSEMBLER CLIP ON SUNGLASSES [address] [place] [address] PCP - General Family Medicine 01/03/20 09/27/20 Gwen Cisneros MD [address] [place] [address] PCP - General Family Medicine 09/28/20 06/25/23 Christiano Camacho, PAC [address] [place] [address] PCP - General Physician Lace Tearing Supervisor 06/26/23 01/31/24 Christiano Camacho, PAC [address] [place] [address] PCP - General Physician Lace Tearing Supervisor 02/05/24 Rand Field APRN, COTTON SAMPLER #[address] [place] [address] Nurse Practitioner Advanced Practice Nurse 12/11/23 Favian Blanton MD [address] [place] [address] Consulting Physician Neurology 08/22/23 Juancho Smith MD [address] [address] Consulting Physician General Surgery 05/22/24 documented as of this encounter
--- OUTSIDE RECORDS SUMMARY | 2025-06-03 20:43 | XMS_ITS | Encounter Summary ---
Author Organization [facility] Address [address] [place] [address] Phone Care Team Providers Care Resident Care Spec Name Role Phone Christiano Camacho PAC Primary Care Provider + [phone] Rand Field APRN, DIRECTOR DIGITAL Unavailable + [phone] Favian Blanton MD Unavailable +[phone] Christiano Camacho Primary Care Provider + [phone] Juancho Smith MD Unavailable [phone] Reason for Visit * Reason Comments Medication Refill Encounter Details Date Type Department Care Team (Late st Contact Info) Description 07/16/2023 Refill [facility] - Primary Care - [place] [address] [place] [address] Christiano Camacho, PAC [address] [place] [address] Medication Refill Social History Tobacco Use Types [...] suspected to have Coronavirus/COVID-19? No / Unsure 07/18/2023 6:16 AM CDT documented as of this encounter Miscellaneous Notes * Telephone Encounter - Christiano Camacho PAC - 07/20/2023 12:05 PM CDT Rx denied. * Telephone Encounter - Emily Palacios RN - 07/18/2023 8:27 AM CDT Medication failed the protocol, provider to review and approve the medication order if appropriate. Requested Prescriptions Pending Prescriptions Disp Refills methocarbamol (ROBAXIN) 500 MG Tablet [Pharmacy Med Name: METHOCARBAMOL 500MG TABLETS] 120 Tablet 0 Sig: TAKE 2 TABLETS BY MOUTH THREE TIMES DAILY NEEDED FOR LOWER BACK PAIN Not Delegated - Muscle Relaxants Protocol Failed - 07/16/2023 11:24 AM Failed - This refill cannot be delegated Passed - Visit with relevant provider in past 12 months or upcoming 90 days Recent Visits Date Type Provider Dept 06/26/23 Office Visit Christiano Camacho PAC [facility] Showing recent visits within past 365 days and meeting all other requirements Today's Visits Date Type Provider Dept 07/18/23 Appointment Christiano Camacho PAC [facility] Showing today's visits and meeting all other requirements Future Appointments No visits were found meeting these conditions. Showing future appointments within next 90 days and meeting all other requirements documented in this encounter Plan of Treatment Not on file documented as of this encounter Visit Diagnoses Diagnosis Chronic midline low back pain with left-sided sciatica documented in this encounter Additional Health Concerns Assessment Noted Time PHQ-9 Depression Total Score: 1 03/15/20 19 10:00 AM CDT documented as of this encounter Care Teams Resident Care Spec Relationship Specialty Start Date End Date Christiano Camacho, PAC [address] [place] [address] PCP - General Physician Seeing Eye Dog Trainer 06/26/23 01/31/24 Christiano Camacho, PAC [address] [place] [address] PCP - General Physician Seeing Eye Dog Trainer 02/05/24 Rand Field, HOUSECLEANER FLOOR, DIRECTOR DIGITAL [address] [place] [address] Nurse Practitioner Advanced Practice Nurse 12/11/23 Favian Blanton MD #[address] [place] [address] Consulting Physician Neurology 08/22/23 Juancho Smith MD #[address] [address] Consulting Physician General Surgery 05/22/24 documented as of this encounter
--- OUTSIDE RECORDS SUMMARY | 2025-06-03 20:43 | XMS_ITS | Encounter Summary ---
Author Organization [facility] Address [address] [place] [address] Phone Care Team Providers Care Commissary Assistant Name Role Phone Brina Stiles Christopher CAAL, FOOD EQUIPMENT SERVICE TECHNICIAN Primary Care Provider Gwen Cisneros MD Primary Care Provider + [phone] Christiano Camacho PAC Primary Care Provider + [phone] Rand Field APRN, DENTAL INSURANCE COORDINATOR Unavailable + [phone] Favian Blanton MD Unavailable +[phone] Christiano Camacho PAC Primary Care Provider + [phone] Juancho Smith MD Unavailable [phone] Reason for Visit * Reason Comments Medication Refill Encounter Details Date Type Department Care Team (Late st Contact Info) Description 06/04/2020 Refill [facility] - Neurology - [place] [address]1 [place] [address] Favian Blanton MD [address] [place] [address] Medication Refill Social History Tobacco Use Types [...] documented as of this encounter Care Teams Commissary Assistant Relationship Specialty Start Date End Date Brina Stiles, ENTRY WRITER, FOOD EQUIPMENT SERVICE TECHNICIAN [address] [place] [address] PCP - General Family Medicine 01/03/20 09/27/20 Gwen Cisneros MD [address] [place] [address] PCP - General Family Medicine 09/28/20 06/25/23 Christiano Camacho, PAC [address] [place] [address] PCP - General Physician Embedded Linux Engineer 06/26/23 01/31/24 Christiano Camacho, PAC [address] [place] [address] PCP - General Physician Embedded Linux Engineer 02/05/24 Rand Field APRN, DENTAL INSURANCE COORDINATOR [address] [place] [address] Nurse Practitioner Advanced Practice Nurse 12/11/23 Favian Blanton MD [address] [place] [address] Consulting Physician Neurology 08/22/23 Juancho Smith MD [address] [address] Consulting Physician General Surgery 05/22/24 documented as of this encounter
--- OUTSIDE RECORDS SUMMARY | 2025-06-03 20:43 | XMS_ITS | Encounter Summary ---
Author Organization [facility] Address [address] [place] [address] Phone Care Team Providers Care Personal Shopper Name Role Phone Gwen Cisneros MD Primary Care Provider + [phone] Christiano Camacho PAC Primary Care Provider + [phone] Rand Field APRN, BOARD CERTIFIED MUSIC THERAPIST Unavailable + [phone] Favian Blanton MD Unavailable +[phone] Christiano Camacho PAC Primary Care Provider + [phone] Juancho Smith MD Unavailable [phone] Reason for Visit * Reason Comments Medication Refill Encounter Details Date Type Department Care Team (Late st Contact Info) Description 05/14/2021 Refill [facility] - [facility]rology - [place] #1 [facility] [place] [address] Favian Blanton MD [address] [place] [address] Medication Refill Social History Tobacco Use Types [...] documented as of this encounter Care Teams Personal Shopper Relationship Specialty Start Date End Date Gwen Cisneros MD [address] [place], [place] [address] PCP - General Family Medicine 09/28/20 06/25/23 Christiano Camacho PAC [address] [place] [address] PCP - General Physician Quality Management Coordinator 06/26/23 01/31/24 Christiano Camacho PAC [address] [place] [address] PCP - General Physician Quality Management Coordinator 02/05/24 Rand Field APRN, BOARD CERTIFIED MUSIC THERAPIST [address] [place] [address] Nurse Practitioner Advanced Practice Nurse 12/11/23 Favian Blanton MD #[address] [place] [address] Consulting Physician Neurology 08/22/23 Juancho Smith MD [address] [address] [address] [address] Consulting Physician General Surgery 05/22/24 documented as of this encounter
[2025-06-03 20:51] VITALS: BP 143/75; PULSE 66; RESP 16; TEMP 36.4; O2SAT 100
--- NOTE | 2025-06-04 00:07 | ED.NECK ---
HPI - Neck Pain/Injury General Chief Complaint: Neck Pain/Injury Stated Complaint: neck and spine pain radiating to R arm Time Seen by Provider: 06/04/25 00:01 Source: patient Mode of arrival: EMS Limitations: no limitations History of Present Illness HPI Narrative: This is a 44-year-old female that presents to the emergency department for neck pain, headache. This is a chronic/ongoing issue for her. She has history of Chiari malformation, had surgery to correct this. Initially it was helpful, but patient has had worsening pain. Reports radicular pain of the cervical spine as well. She has a known herniated disc. Reporting neck pain radiating down the right arm. She currently sees a spine surgeon and a shipyard painter apprentice. She took Excedrin tonight with little relief. Related Data Allergies Allergy/AdvReac Type Severity Reaction Status Date / Time metoclopramide (From Reglan) Allergy Intermediate Hives Verified 06/03/25 20:57 ketorolac Allergy Unknown Unknown Verified 06/03/25 20:57 sumatriptan Allergy Unknown Unknown Verified 06/03/25 20:57 SUMATRIPTAN SUCCINATE Allergy Unknown Unknown Uncoded 06/03/25 20:57 Review of Systems Review of Systems: All systems reviewed & are unremarkable except as noted in HPI and below PMFSH Family History Family History (Updated 07/10/14 @ 07:13 by DOCTOR UNKNOWN) Mother Hypertension Cerebrovascular accident Social History Social History Smoking status: Never smoker Alcohol intake: never Exam Narrative: GENERAL: Well-appearing, well-nourished, and in no acute distress. HEAD: Normocephalic, atraumatic. EYES: PERRLA and EOMI. ENT: Nares clear, no rhinorrhea or epistaxis. Mucous membranes moist. Oropharynx without tonsillar hypertrophy exudate or other lesions. Bilateral TMs pearly valadez non-bulging NECK: Supple. No adenopathy or masses. Normal range of motion CHEST: Clear to auscultation. No respiratory distress. No wheezes rales or rhonchi HEART: Regular rate and rhythm. No murmur heard. Normal peripheral pulses. EXTREMITIES: Normal range of motion. No edema. Strength equal in bilateral upper extremities (5/5) SKIN: Warm, dry, no rash. NEURO: No focal deficits. Alert and oriented x3. CN II-XII grossly intact PSYCH: Normal mood and affect Course Vital Signs Vital signs: Vital Signs Temperature 97.6 F 06/03/25 20:51 Pulse Rate 66 06/03/25 20:51 Respiratory Rate 16 06/03/25 20:51 Blood Pressure 143/75 H 06/03/25 20:51 Pulse Oximetry 100 06/03/25 20:51 Oxygen Delivery Room Air 06/03/25 20:51 Temperature 97.6 F 06/03/25 20:51 Pulse Rate 66 06/03/25 20:51 Respiratory Rate 16 06/03/25 20:51 Blood Pressure 143/75 H 06/03/25 20:51 Pulse Oximetry 100 06/03/25 20:51 Oxygen Delivery Room Air 06/03/25 20:51 MDM - Neck Pain/Injury MDM Narrative Medical decision making narrative: Patient presents to the emergency department for chronic neck pain. Reporting radiation down the right arm. Reports history of bulging discs. Also reports history of headaches, has head surgery for Chiari malformation. Patient is neurologically intact. She is afebrile and nontoxic appearing. CT brain and cervical spine without acute findings. Patient updated on her workup and agrees with plan of care. Instructed to have continued follow-up with her specialists. She was given warnings to return to the ER Differential Diagnosis Differential diagnosis: Likely disc disorder of cervical region, cervical spondylosis, strain of neck muscle and other (Migraine, headache) Imaging Data Radiologist's impression: CT brain: No evidence of acute intracranial pathology. No comparisons. Status post suboccipital craniotomy with expected postsurgical changes CT cervical spine: No evidence of acute cervical spine pathology Critical Care Time Critical Care Time Critical Care Time: No Discharge Plan Discharge Clinical Impression: Cervical radiculopathy Patient Disposition: Home Condition: Stable Instructions: Cervical Radiculopathy (ED) Additional Instructions: Return to the ER if you experience weakness, numbness, or any other symptoms that are concerning to you Rest, use ice/heat, take anti-inflammatories (Aleve, Ibuprofen, Naproxen, etc) or Tylenol as needed for pain as well as muscle relaxer (Flexeril) as needed for pain. Muscle relaxers can make you drowsy, do not drive if you take this. Take steroid taper as prescribed Follow up with your neurosurgeon and shipyard painter apprentice Patient Language: Danish Prescriptions: New methylprednisolone [Medrol (Fracisco)] 4 mg tablets,dose pack See Rx Instructions .ROUTE .COMPLEX Qty: 21 0RF Rx Instructions: orally per package directions cyclobenzaprine 10 mg tablet 10 mg PO TID PRN (Reason: muscle spasm) Qty: 14 0RF Follow-up/Referrals: PHYSICIAN,KIT ASSEMBLER [Non-Staff] -
--- OUTSIDE RECORDS SUMMARY | 2025-06-04 00:09 | XMS_ITS | Clinical Summary ---
Author Organization [facility] Address [address] [place] [address] Phone Care Team Providers Care Redeye Gunner Name Role Phone Rand Field APRN, SHACKLER Unavailable + [phone] Favian Blanton MD Unavailable +[phone] Christiano Camacho PAC Primary Care Provider + [phone] Juancho Smith MD Unavailable [phone] Allergies Active Allergy Reactions Criticality Noted Date [...] Department Care Team Description 05/30/2025 [facility] [place] [facility] [place] [address] [facility] [place] [address] Christiano Camacho, PAC from Last 3 Months [...] Documents on File Type Date Recorded Patient Assistant Boiler Operator Expl anation POLST/POST/[place] DNR 04/16/2019 3:39 AM POLST (08-07-2015) POLST/POST/[place] DNR 03/08/2019 3:43 AM polst 03/07/2019 * [...] measures to stabilize the patient. Care Teams Redeye Gunner Relationship Specialty Start Date End Date Christiano Camacho, PAC [address] [place] [address] PCP - General Physician Ship Liner 02/05/24 Rand Field, WOODWORKING CRAFTSMAN, SHACKLER [address] [place] [address] Nurse Practitioner Advanced Practice Nurse 12/11/23 Favian Blanton MD [address] [place] [address] Consulting Physician Neurology 08/22/23 Juancho Smith MD [address] [address] Consulting Physician General Surgery 05/22/24
--- OUTSIDE RECORDS SUMMARY | 2025-06-04 00:09 | XMS_ITS | Referral Summary ---
Author Organization [facility] Address [address] [place] [address] Care Team Providers Care Endodontics Dentist Name Role Phone Evangelista Wakefield MD Unavailable [phone] Stanford Meza MD Unavailable [phone] Luis Aden MD Unavailable [phone] Naima Sarkar MD Primary Care Provider [phone] Encounters Date Type Department Care Team Description 04/11/2025 9:26 PM CDT - 04/12/2025 1:37 AM CDT Emergency [facility] Emergency Department [address] [place] [address] Kevon Solis MD Nonintractable headache, unspecified chronicity pattern, unspecified headache type (Primary Dx); Neck pain Discharge Disposition: Discharge to home or self care 04/02/2025 Telephone [facility] [address] [place] [address] Medical Office Building [address] [place] [address] Brandon Saldana MA 03/28/2025 Telephone [facility] [address] [place] [address] Eleonora Baltazar from Last 3 [...] on file Legal Sex Female 12:40 AM CHUTE TAPPER Gender Identity Female 08/09/2023 6:35 PM CDT [...] 162.6 cm (5' 4) 10/03/2024 9:11 AM CHUTE TAPPER Body Mass Index 31.76 10/03/2024 9:11 AM CHUTE TAPPER Plan of Treatment Not on file Medical Devices Implanted Type Area Driver Manager Device Identifier Shelf Expiration Date Model / Serial / Lot [email or web address] Graft Tissue Accelular Matrix Dermis Regn Medium Alloderm Select 4x7cm Rtu [id number] - [id number] Implanted:Qty: 1 on 09/29/2023 by Luis Aden MD at [facility] N/A: Dura SP3Han [employer] [id number] 07/13/2025 [id number] / / [id number] Procedures Procedure Name Priority Date/Time Associated [...] sult from Last 3 Months Insurance [place]PA [id number] [place] [id number] [place] [address] Advance Directives For more information, please contact: [phone] * Full Code (Latest Code Status on File) Date Activated Date Inactivated Comments 09/29/2023 12:17 PM 10/01/2023 6:01 PM * Full Code Date Activated Date Inactivated Comments 05/31/2021 8:48 PM 06/05/2021 5:13 PM * Full Code Date Activated Date Inactivated Comments 05/11/2018 1:16 AM 05/15/2018 11:47 PM Care Teams Endodontics Dentist Relationship Specialty Start Date End Date Naima Sarkar MD [address] [place] [address] PCP - General Internal Medicine 12/13/24 Evangelista Wakefield MD Hook Puller Obstetrics and Gynecology 05/11/18 Stanford Meza MD Surgeon General Surgery 06/05/21 Luis dAen MD Consulting Physician Neurosurgery 07/26/23
--- OUTSIDE RECORDS SUMMARY | 2025-06-04 00:09 | XMS_ITS | Encounter Summary ---
Author Organization [facility] Address [address] [place] [address] Phone Care Team Providers Care Steel Die Printer Name Role Phone Christiano Camacho PAC Primary Care Provider + [phone] Rand Field APRN, RELATIONSHIP COUNSELOR Unavailable + [phone] Favian Blanton MD Unavailable [phone] Christiano Camacho Primary Care Provider + [phone] Juancho Smith MD Unavailable [phone] Reason for Visit * Reason Comments Medication Refill Encounter Details Date Type Department Care Team (Late st Contact Info) Description 07/16/2023 Refill [facility] - Primary Care - [place] [address] [place] [address] Christiano Camacho, PAC [address] [place] [address] Medication Refill Social History Tobacco [...] Dept 06/26/23 Office Visit Christiano Camacho PAC [facility] Showing recent visits within past 365 days and meeting all other requirements Today's Visits Date Type Provider Dept 07/18/23 Appointment Christiano Camacho PAC [facility] Showing today's visits and meeting all [...] documented as of this encounter Care Teams Steel Die Printer Relationship Specialty Start Date End Date Christiano Camacho, PAC [address] [place] [address] PCP - General Physician Hospital Sales Representative 06/26/23 01/31/24 Christiano Camacho, PAC [address] [place] [address] PCP - General Physician Hospital Sales Representative 02/05/24 Rand Field, OFFICE EXECUTIVE, RELATIONSHIP COUNSELOR [address] [place] [address] Nurse Practitioner Advanced Practice Nurse 12/11/23 Favian Blanton MD [address] [place] [address] Consulting Physician Neurology 08/22/23 Juancho Smith MD [address] [address] Consulting Physician General Surgery 05/22/24 documented as of this encounter
--- OUTSIDE RECORDS SUMMARY | 2025-06-04 00:09 | XMS_ITS | Encounter Summary ---
Author Organization [facility] Address [address] [place] [address] Phone Care Team Providers Care Laborer Orchard Name Role Phone Rand Field APRN, JOS Unavailable + [phone] Favian Blanton MD Unavailable +[phone] Christiano Camacho PAC Primary Care Provider + [phone] Juancho Smith MD Unavailable [phone] Reason for Visit * Reason Comments Medication Refill Encounter Details Date Type Department Care Team (Late st Contact Info) Description 06/17/2024 [facility] - [place] [address] [place] [phone] Rand Field APRN, OTM CONSULTANT [address] [place] [address] Medication Refill Social History Tobacco Use Types [...] documented as of this encounter Care Teams Laborer Orchard Relationship Specialty Start Date End Date Christiano Camacho, PAC [address] [place] [address] PCP - General Physician Centralized Traffic Control Operator 02/05/24 Rand Field, JOINT SEALER, OTM CONSULTANT [address] [place] [address] Nurse Practitioner Advanced Practice Nurse 12/11/23 Favian Blanton MD [address] [place] [address] Consulting Physician Neurology 08/22/23 Juancho Smith MD [address] [address] Consulting Physician General Surgery 05/22/24 documented as of this encounter
--- OUTSIDE RECORDS SUMMARY | 2025-06-04 00:09 | XMS_ITS | Encounter Summary ---
Author Organization [facility] Address [address] [place] [address] Phone Care Team Providers Care Canine Service Instructor Trainer Name Role Phone Gwen Cisneros MD Primary Care Provider + [phone] Christiano Camacoh PAC Primary Care Provider + [phone] Rand Field APRN, COMPACTING MACHINE OPERATOR/TENDER Unavailable + [phone] Favian Blanton MD Unavailable [phone] Christiano Camacho PAC Primary Care Provider + [phone] Juancho Smith MD Unavailable [phone] Reason for Visit * Reason Comments Medication Refill Encounter Details Date Type Department Care Team (Late st Contact Info) Description 04/09/2021 [facility]ill [facility] - [facility] - [place] [address] [place] [address] Favian Blanton MD [address] [place] [address] Medication Refill Social History Tobacco Use Types [...] documented as of this encounter Care Teams Canine Service Instructor Trainer Relationship Specialty Start Date End Date Gwen Cisneros MD [address] [place] [address] PCP - General Family Medicine 09/28/20 06/25/23 Christiano Camacho PAC [address] [place] [address] PCP - General Physician Printed Circuit Board Layout Designer 06/26/23 01/31/24 Christiano Camacho, PAC [address] [place] [address] PCP - General Physician Printed Circuit Board Layout Designer 02/05/24 Rand Field, POWDERED METAL SUPERVISOR, COMPACTING MACHINE OPERATOR/TENDER [address] [place] [address] Nurse Practitioner Advanced Practice Nurse 12/11/23 Favian Blanton MD [address] [place] [address] Consulting Physician Neurology 08/22/23 Juancho Smith MD [address] [address] Consulting Physician General Surgery 05/22/24 documented as of this encounter
--- OUTSIDE RECORDS SUMMARY | 2025-06-04 00:09 | XMS_ITS | Encounter Summary ---
Author Organization [facility] Address [address] [place] [address] Phone Care Team Providers Care Denitrator Name Role Phone Gwen Cisneros MD Primary Care Provider + [phone] Christiano Camacho PAC Primary Care Provider + [phone] Rand Field APRN, RESIDENTIAL COORDINATOR Unavailable + [phone] Favian Blanton MD Unavailable [phone] Christiano Camacho PAC Primary Care Provider + [phone] Juancho Smith MD Unavailable [phone] Reason for Visit * Reason Comments Medication Refill Encounter Details Date Type Department Care Team (Late st Contact Info) Description 09/27/2021 Refill [facility] [address] [place] [address] Favian Blanton MD [address] [place] [address] Medication Refill Social History Tobacco Use Types [...] documented as of this encounter Care Teams Denitrator Relationship Specialty Start Date End Date Gwen Cisneros MD [address] [place] [address] PCP - General Family Medicine 09/28/20 06/25/23 Christiano Camacho PAC [address] [place] [address] PCP - General Physician Mercerizing Range Controller 06/26/23 01/31/24 Christiano Camacho, PAC [address] [place] [address] PCP - General Physician Mercerizing Range Controller 02/05/24 Rand Field APRN, RESIDENTIAL COORDINATOR [address] [place] [address] Nurse Practitioner Advanced Practice Nurse 12/11/23 Favian Blanton MD [address] [place] [address] Consulting Physician Neurology 08/22/23 Juancho Smith MD [address] [address] Consulting Physician General Surgery 05/22/24 documented as of this encounter
--- OUTSIDE RECORDS SUMMARY | 2025-06-04 00:09 | XMS_ITS | Encounter Summary ---
Author Organization [facility] Address [address] [place] [address] Phone Care Team Providers Care Correspondence Analyst Name Role Phone Brina Stiles Christopher CAAL, PRODUCTION CONTROL ANALYST Primary Care Provider Gwen Cisneros MD Primary Care Provider + [phone] Christiano Camacho PAC Primary Care Provider + [phone] Rand Field APRN, CASH VAN SALESPERSON Unavailable + [phone] Favian Blanton MD Unavailable [phone] Christiano Camacho PAC Primary Care Provider + [phone] Juancho Smith MD Unavailable [phone] Reason for Visit * Reason Comments Medication Refill Encounter Details Date Type Department Care Team (Late st Contact Info) Description 09/08/2020 [facility]ill [facility] - [place] [address] [place] [address] Favian Blanton MD [address] [place] [address] Medication Refill Social History Tobacco Use Types [...] documented as of this encounter Care Teams Correspondence Analyst Relationship Specialty Start Date End Date Brina Stiles, ASSAULT AMPHIBIOUS VEHICLE CREWMAN, PRODUCTION CONTROL ANALYST [address] [place] [address] PCP - General Family Medicine 01/03/20 09/27/20 Gwen Cisneros MD [address] [place] [address] PCP - General Family Medicine 09/28/20 06/25/23 Christiano Camacho, PAC [address] [place] [address] PCP - General Physician Systems Programmer Analyst 06/26/23 01/31/24 Christiano Camacho, PAC [address] [place] [address] PCP - General Physician Systems Programmer Analyst 02/05/24 Rand Field, ASSAULT AMPHIBIOUS VEHICLE CREWMAN, CASH VAN SALESPERSON [address] [place] [address] Nurse Practitioner Advanced Practice Nurse 12/11/23 Favian Blanton MD [address] [place] [address] Consulting Physician Neurology 08/22/23 Juancho Smith MD [address] [address] Consulting Physician General Surgery 05/22/24 documented as of this encounter
--- OUTSIDE RECORDS SUMMARY | 2025-06-04 00:09 | XMS_ITS | Encounter Summary ---
Author Organization [facility] Address [address] [place] [address] Phone Care Team Providers Care Clinical Nutrition Manager Name Role Phone Brina Stiles Christopher CAAL, SOFTWARE ANALYST Primary Care Provider Gwen Cisneros MD Primary Care Provider + [phone] Christiano Camacho PAC Primary Care Provider + [phone] Rand Field APRN, BUILDING SUPPLIES SALESPERSON RETAIL Unavailable + [phone] Favian Blanton MD Unavailable [phone] Christiano Camacho PAC Primary Care Provider + [phone] Juancho Smith MD Unavailable [phone] Reason for Visit * Reason Comments Medication Refill Encounter Details Date Type Department Care Team (Late st Contact Info) Description 06/18/2020 Refill [facility] - [facility]rology - [place] [address] [place] [address] Favian Blanton MD [address] [place] [address] Medication Refill Social History Tobacco Use Types [...] documented as of this encounter Care Teams Clinical Nutrition Manager Relationship Specialty Start Date End Date Brina Stiles, JUVENILE COURT LIAISON, SOFTWARE ANALYST [address] [place] [address] PCP - General Family Medicine 01/03/20 09/27/20 Gwen Cisneros MD [address] [place] [address] PCP - General Family Medicine 09/28/20 06/25/23 Christiano Camacho, PAC [address] [place] [address] PCP - General Physician Solutions Sales Executive 06/26/23 01/31/24 Christiano Camacho, PAC [address] [place] [address] PCP - General Physician Solutions Sales Executive 02/05/24 Rand Field APRN, BUILDING SUPPLIES SALESPERSON RETAIL [address] [place] [address] Nurse Practitioner Advanced Practice Nurse 12/11/23 Favian Blanton MD [address] [place] [address] Consulting Physician Neurology 08/22/23 Juancho Smith MD [address] [phone] Consulting Physician General Surgery 05/22/24 documented as of this encounter
--- OUTSIDE RECORDS SUMMARY | 2025-06-04 00:09 | XMS_ITS | Encounter Summary ---
Author Organization [facility] Address [address] [place] [address] Phone Care Team Providers Care Curator Natural History Museum Name Role Phone Gwne Cisneros MD Primary Care Provider + [phone] Christiano Camacho PAC Primary Care Provider + [phone] Rand Field APRN, ENGINEERING FACULTY Unavailable + [phone] Favian Blanton MD Unavailable [phone] Christiano Camacho PAC Primary Care Provider + [phone] Juancho Smith MD Unavailable [phone] Reason for Visit * Reason Comments Medication Refill Encounter Details Date Type Department Care Team (Late st Contact Info) Description 01/18/2021 Refill [facility]rology - [place] [address] [facility] [place] [address] Favian Blanton MD [address] [place] [address] Medication Refill Social History Tobacco Use Types [...] documented as of this encounter Care Teams Curator Natural History Museum Relationship Specialty Start Date End Date Gwen Cisneros MD [address] [place], [place] [address] PCP - General Family Medicine 09/28/20 06/25/23 Christiano Camacho PAC [address] [place] [address] PCP - General Physician Revenue Liaison 06/26/23 01/31/24 Christiano Camacho PAC [address] [place] [address] PCP - General Physician Revenue Liaison 02/05/24 Rand Field, ARTILLERY METEOROLOGICAL MAN, ENGINEERING FACULTY [address] [place] [address] Nurse Practitioner Advanced Practice Nurse 12/11/23 Favian Blanton MD [address] [place] [address] Consulting Physician Neurology 08/22/23 Juancho Smith MD [address] [place] [address] Consulting Physician General Surgery 05/22/24 documented as of this encounter
--- OUTSIDE RECORDS SUMMARY | 2025-06-04 00:09 | XMS_ITS | Encounter Summary ---
Author Organization [facility] Address [address] [place] [address] Phone Care Team Providers Care Six Pack Packer Name Role Phone Gwen Cisneros MD Primary Care Provider + [phone] Christiano Camacho PAC Primary Care Provider + [phone] Rand Field APRN, STREET CLEANING EQUIPMENT OPERATOR Unavailable + [phone] Favian Blanton MD Unavailable +[phone] Christiano Camacho PAC Primary Care Provider + [phone] Juancho Smith MD Unavailable [phone] Reason for Visit * Reason Comments Medication Refill Encounter Details Date Type Department Care Team (Late st Contact Info) Description 05/14/2021 [facility]ill [facility] - [facility]rology - [place] #1 [facility] [place] [address] Favian Blanton MD #2 [place] [address] Medication Refill Social History Tobacco Use Types [...] documented as of this encounter Care Teams Six Pack Packer Relationship Specialty Start Date End Date Gwen Cisneros MD [address] [place], [place] [address] PCP - General Family Medicine 09/28/20 06/25/23 Christiano Camacho PAC [address] [place] [address] PCP - General Physician Steel Die Engraver 06/26/23 01/31/24 Christiano Camacho PAC [address] [place] [address] PCP - General Physician Steel Die Engraver 02/05/24 Rand Field APRN, STREET CLEANING EQUIPMENT OPERATOR #2 [place] [address] Nurse Practitioner Advanced Practice Nurse 12/11/23 Favian Blanton MD #2 [place] [address] Consulting Physician Neurology 08/22/23 Juancho Smith MD [address] [address] Consulting Physician General Surgery 05/22/24 documented as of this encounter
--- OUTSIDE RECORDS SUMMARY | 2025-06-04 00:09 | XMS_ITS | Encounter Summary ---
Author Organization [facility] Address [address] [place] [address] Phone Care Team Providers Care Brooch And Bracelet Maker Name Role Phone Rand Field APRN, JOS Unavailable + [phone] Favian Blanton MD Unavailable +[phone] Christiano Camacho PAC Primary Care Provider + [phone] Juancho Smith MD Unavailable [phone] Reason for Visit * Reason Comments Medication Refill Encounter Details Date Type Department Care Team (Late st Contact Info) Description 03/13/2024 [facility] - [place] #2 [place] [address] Rand Field APRN, PLANNED GIVING OFFICER #2 [place] [address] Medication Refill Social History Tobacco Use Types [...] Provider Dept 02/05/24 Telemedicine Rand Field APRN, [facility] Neurology [facility] 12/11/23 Telemedicine Rand Field APRN, CNS [facility] 08/22/23 Telemedicine Favian Blanton MD [facility] [place] [place] 06/26/23 Office Visit Christiano Camacho PAC [facility] Showing recent visits within past 365 days [...] documented as of this encounter Care Teams Brooch And Bracelet Maker Relationship Specialty Start Date End Date Christiano Camacho PAC [address] [place] [address] PCP - General Physician Senior Maintenance Machinist 02/05/24 Rand Field APRN, PLANNED GIVING OFFICER #2 [place] [address] Nurse Practitioner Advanced Practice Nurse 12/11/23 Favian Blanton MD #2 [place] [address] Consulting Physician Neurology 08/22/23 Juancho Simth MD #[address] [address] Consulting Physician General Surgery 05/22/24 documented as of this encounter
--- OUTSIDE RECORDS SUMMARY | 2025-06-04 00:09 | XMS_ITS | Encounter Summary ---
Author Organization [facility] Address [address] [place] [address] Phone Care Team Providers Care High School Music Director Name Role Phone Brina Stiles Christopher CAAL, DRILLING FLUIDS SPECIALIST Primary Care Provider Gwen Cisneros MD Primary Care Provider + [phone] Christiano Camacho PAC Primary Care Provider + [phone] Rand Field APRN, TECHNICAL PROGRAM MANAGER Unavailable + [phone] Favian Blanton MD Unavailable +[phone] Christiano Camacho PAC Primary Care Provider + [phone] Juancho Smith MD Unavailable [phone] Reason for Visit * Reason Comments Medication Refill Encounter Details Date Type Department Care Team (Late st Contact Info) Description 06/04/2020 Refill [facility] - Neurology - [place] #1 [place] [address] Favian Blanton MD #2 [place] [address] Medication Refill Social History Tobacco Use Types [...] documented as of this encounter Care Teams High School Music Director Relationship Specialty Start Date End Date Brina Stiles, SUPERINTENDENT MAINTENANCE [employer], DRILLING FLUIDS SPECIALIST [address] [place] [address] PCP - General Family Medicine 01/03/20 09/27/20 Gwen Cisneros MD [address] [place] [address] PCP - General Family Medicine 09/28/20 06/25/23 Christiano Camacho, PAC [address] [place] [address] PCP - General Physician Last Sawyer 06/26/23 01/31/24 Christiano Camacho, PAC [address] [place] [address] PCP - General Physician Last Sawyer 02/05/24 Rand Field APRN, TECHNICAL PROGRAM MANAGER #[address] [place] [address] Nurse Practitioner Advanced Practice Nurse 12/11/23 Favian Blanton MD [address] [place] [address] Consulting Physician Neurology 08/22/23 Juancho Smith MD [address] [address] Consulting Physician General Surgery 05/22/24 documented as of this encounter
--- OUTSIDE RECORDS SUMMARY | 2025-06-04 00:09 | XMS_ITS | Encounter Summary ---
Author Organization [facility] Address [address] [facility] [address] Phone Care Team Providers Care Glue Mixer Name Role Phone Gwen Cisneros MD Primary Care Provider Reason for Visit * Auth/Cert Specialty Diagnoses / Procedures Referred By Yuri mcmullen Referred To Contact Diagnoses EPIGASTRIC PAIN Procedures EGD Referral ID Status Reason Start Date Expiration Date Visits Re quested Visits Authorized [id number] 1 1 Encounter Details Date Type Department Care Team (Late st Contact Info) Description 10/27/2021 10:30 AM POURER OFF Hospital Encounter [facility] Lab Periop [address] [place] [address] Enrique Hua MD #2 [place] [address] Social History Tobacco Use Types Packs/Day Years [...] 68.5 kg (151 lb) 10/11/2021 11:00 AM POURER OFF Height 162.6 cm (5' 4) 10/11/2021 11:00 AM POURER OFF Body Mass Index 25.92 10/11/2021 11:00 AM POURER OFF documented in this encounter Miscellaneous Notes * Interdisciplinary - Fiorella, Cassie Garcia RN - 10/11/2021 11:40 AM CST [facility] GI TEACHING Patient Name: Albert Garcia Neo : 1980 CSN#: [id number] Person Educated Patient Ready to Learn Yes [...] be allowed to accompany you to the [facility]. No children under the age of 16 will be allowed in the [facility] unless they are the patient. If [...] to Teaching: Verbalizes Understanding Patient assessed for world language teacher during the preop interview and appropriate interventions taken if applicable. ER OFF documented in this encounter Plan of Treatment Not on file documented as of this encounter Visit Diagnoses Not on filedocumented in this encounter Additional Health Concerns Assessment Noted Time PHQ-9 Depression Total Score: 1 03/15/20 19 10:00 AM CDT documented as of this encounter Care Teams Glue Mixer Relationship Specialty Start Date End Date Gwen Cisneros MD [address] [place] [address] PCP - General Family Medicine 09/28/20 06/25/23 documented as of this encounter
--- OUTSIDE RECORDS SUMMARY | 2025-06-04 00:09 | XMS_ITS | Encounter Summary ---
Author Organization [facility] Address [address] [place] [address] Phone Care Team Providers Care Risk And Insurance Consultant Name Role Phone Brina Stiles Christopher CAAL, GTA Primary Care Provider Gwen Cisneros MD Primary Care Provider + [phone] Christiano Camacho PAC Primary Care Provider + [phone] Rand Field APRN, SECTION MAINTAINER Unavailable + [phone] Favian Blanotn MD Unavailable +[phone] Christiano Camacho PAC Primary Care Provider + [phone] Juancho Smith MD Unavailable [phone] Reason for Visit * Reason Comments Medication Refill Encounter Details Date Type Department Care Team (Late st Contact Info) Description 07/16/2020 Refill [facility] - Neurology - [place] #1 [place] [address] Favian Blanton MD #2 [place] [address] Medication Refill Social History Tobacco Use Types [...] documented as of this encounter Care Teams Risk And Insurance Consultant Relationship Specialty Start Date End Date Brina Stiles, ENVELOPE CUTTER, GTA [address] [place] [address] PCP - General Family Medicine 01/03/20 09/27/20 Gwen Cisneros MD [address] [place] [address] PCP - General Family Medicine 09/28/20 06/25/23 Christiano Camacho, PAC [address] [place] [address] PCP - General Physician Ortho Assistant 06/26/23 01/31/24 Christiano Camacho, PAC [address] [place] [address] PCP - General Physician Ortho Assistant 02/05/24 Rand Field, ENVELOPE CUTTER, SECTION MAINTAINER #2 [place] [address] Nurse Practitioner Advanced Practice Nurse 12/11/23 Favian Blanton MD #2 [place] [address] Consulting Physician Neurology 08/22/23 Juancho Smith MD #[address] [address] Consulting Physician General Surgery 05/22/24 documented as of this encounter
--- OUTSIDE RECORDS SUMMARY | 2025-06-04 00:09 | XMS_ITS | Encounter Summary ---
Author Organization [facility] Address [address] [place] [address] Phone Care Team Providers Care Traveling Nurse Name Role Phone Gwen Cisneros MD Primary Care Provider + [phone] Christiano Camacho PAC Primary Care Provider + [phone] Rand Field APRN, SECOND BUTLER Unavailable + [phone] Favian Blanton MD Unavailable +[phone] Christiano Camacho PAC Primary Care Provider + [phone] Juancho Smith MD Unavailable [phone] Reason for Visit * Reason Comments Medication Refill Encounter Details Date Type Department Care Team (Late st Contact Info) Description 09/27/2021 Refill [facility] - Neurology - [place] #2 [place] [address] Rand Field APRN, SECOND BUTLER #2 [place] [address] Medication Refill Social History Tobacco Use Types [...] documented as of this encounter Care Teams Traveling Nurse Relationship Specialty Start Date End Date Gwen Cisneros MD [address] [place] [address] PCP - General Family Medicine 09/28/20 06/25/23 Christiano Camacho PAC [address] [place] [address] PCP - General Physician Echocardiograph Tech 06/26/23 01/31/24 Christiano Camacho, PAC [address] [place] [address] PCP - General Physician Echocardiograph Tech 02/05/24 Rand Field APRN, SECOND BUTLER #2 [place] [address] Nurse Practitioner Advanced Practice Nurse 12/11/23 Favian Blanton MD #2 [place] [address] Consulting Physician Neurology 08/22/23 Juancho Smith MD #[address] [address] Consulting Physician General Surgery 05/22/24 documented as of this encounter
--- OUTSIDE RECORDS SUMMARY | 2025-06-04 00:09 | XMS_ITS | Encounter Summary ---
Author Organization [facility] Address [address] [place] [address] Phone Care Team Providers Care Mfts Name Role Phone Gwen Cisneros MD Primary Care Provider + [phone] Christiano Camacho PAC Primary Care Provider + [phone] Rand Field APRN, TREE EXPERT Unavailable + [phone] Favian Blanton MD Unavailable +[phone] Christiano Camacho PAC Primary Care Provider + [phone] Juancho Smith MD Unavailable [phone] Reason for Visit * Reason Comments Medication Refill Encounter Details Date Type Department Care Team (Late st Contact Info) Description 05/10/2021 Refill [facility] #2 [place] [address] Favian Blanton MD #2 [place] [address] Medication Refill Social History Tobacco Use Types [...] documented as of this encounter Care Teams Mfts Relationship Specialty Start Date End Date Gwen Cisneros MD [address] [place], [place] [address] PCP - General Family Medicine 09/28/20 06/25/23 Christiano Camacho, PAC [address] [place] [address] PCP - General Physician Film Editor 06/26/23 01/31/24 Christiano Camacho PAC [address] [place] [address] PCP - General Physician Film Editor 02/05/24 Rand Field APRN, TREE EXPERT #[address] [place] [address] Nurse Practitioner Advanced Practice Nurse 12/11/23 Favian Blanton MD #2 [place] [address] Consulting Physician Neurology 08/22/23 Juancho Smith MD #[address] [address] Consulting Physician General Surgery 05/22/24 documented as of this encounter
--- OUTSIDE RECORDS SUMMARY | 2025-06-04 00:09 | XMS_ITS | Clinical Summary ---
Author Organization [facility] Address [address] [place] [address] Care Team Providers Care Mechanical Technician Name Role Phone Unavailable Primary Care Provider Unavailabl e Source Comments [facility],non-owned Affiliates and Associated Physician Practices is amultiple site organization consisting of ambulatory clinics and hospital sitesin [place], [place], [place] and [place]. This disclosure is being madepursuant to the Care Everywhere program and may not contain all information available regarding this patient. Last updated 18.[facility] [employer] Allergies Active Allergy Reactions Criticality Noted Date [...] PM CDT Legal Sex Female 3:02 AM PAINT PREPPER Gender Identity Female 04/10/2024 3:58 PM CDT [...] complete this topic Insurance MEDICAID - [place] [facility] MEDICAID - [place] [facility]
--- OUTSIDE RECORDS SUMMARY | 2025-06-04 00:09 | XMS_ITS | Encounter Summary ---
Author Organization [facility] Address [address] [place] [address] Phone Care Team Providers Care Mold Yarn Supervisor Name Role Phone Brina Stiles Christopher CAAL, SORTER OPERATOR Primary Care Provider Gwen Cisneros MD Primary Care Provider + [phone] Christiano Camacho PAC Primary Care Provider + [phone] Rand Field APRN, HOOKER UP Unavailable + [phone] Favian Blanton MD Unavailable +[phone] Christiano Camacho PAC Primary Care Provider + [phone] Juancho Smith MD Unavailable [phone] Reason for Visit * Reason Comments Medication Refill Encounter Details Date Type Department Care Team (Late st Contact Info) Description 08/07/2020 Refill [facility] - Neurology - [place] #1 [place] [address] Favian Blanton MD #2 [place] [address] Medication Refill Social History Tobacco [...] documented as of this encounter Care Teams Mold Yarn Supervisor Relationship Specialty Start Date End Date Brina Stiles, GENERAL ROAD SUPERVISOR, SORTER OPERATOR [address] [place] [address] PCP - General Family Medicine 01/03/20 09/27/20 Gwen Cisneros MD [address] [place] [address] PCP - General Family Medicine 09/28/20 06/25/23 Christiano Camacho, PAC [address] [place] [address] PCP - General Physician Telemarketer 06/26/23 01/31/24 Christiano Camacho, PAC [address] [place] [address] PCP - General Physician Telemarketer 02/05/24 Rand Field, GENERAL ROAD SUPERVISOR, HOOKER UP #[address] [place] [address] Nurse Practitioner Advanced Practice Nurse 12/11/23 Favian Blanton MD #2 [place] [address] Consulting Physician Neurology 08/22/23 Juancho Smith MD #[address] [address] Consulting Physician General Surgery 05/22/24 documented as of this encounter
--- OUTSIDE RECORDS SUMMARY | 2025-06-04 00:09 | XMS_ITS | Encounter Summary ---
Author Organization [facility] Address [address] [place] [address] Phone Care Team Providers Care Coffee Grower Name Role Phone Gwen Cisneros MD Primary Care Provider + [phone] Christiano Camacho PAC Primary Care Provider + [phone] Rand Field APRN, AFFILIATE MANAGER Unavailable + [phone] Favian Blanton MD Unavailable +[phone] Christiano Camacho PAC Primary Care Provider + [phone] Juancho Smith MD Unavailable [phone] Reason for Visit * Reason Comments Medication Refill Encounter Details Date Type Department Care Team (Late st Contact Info) Description 03/15/2021 Refill [facility] - [facility]rology - [employer] #1 [place] [address] Favian Blanton MD #2 [place] [address] Medication Refill Social History Tobacco Use Types [...] documented as of this encounter Care Teams Coffee Grower Relationship Specialty Start Date End Date Gwen Cisneros MD [address] [place], [place] [address] PCP - General Family Medicine 09/28/20 06/25/23 Christiano Camacho PAC [address] [place] [address] PCP - General Physician Publicity Expert 06/26/23 01/31/24 Christiano Camacho PAC [address] [place] [address] PCP - General Physician Publicity Expert 02/05/24 Rand Field APRN, AFFILIATE MANAGER #2 [place] [address] Nurse Practitioner Advanced Practice Nurse 12/11/23 Favian Blanton MD #2 [place] [address] Consulting Physician Neurology 08/22/23 Juancho Smith MD [address] [address] Consulting Physician General Surgery 05/22/24 documented as of this encounter
--- OUTSIDE RECORDS SUMMARY | 2025-06-04 00:09 | XMS_ITS | Encounter Summary ---
Author Organization [facility] Address [address] [place] [address] Phone Care Team Providers Care Long Haul Truck Driver Name Role Phone Brina Stiles Christopher CAAL, CIVIL DRAFTING TECHNICIAN Primary Care Provider Gwen Cisneros MD Primary Care Provider + [phone] Christiano Camacho PAC Primary Care Provider + [phone] Rand Field APRN, ELECTRICAL DESIGNER DRAFTER Unavailable + [phone] Favian Blanton MD Unavailable +[phone] Christiano Camacho PAC Primary Care Provider + [phone] Juancho Smith MD Unavailable [phone] Reason for Visit * Reason Comments Medication Refill Encounter Details Date Type Department Care Team (Late st Contact Info) Description 08/17/2020 Refill [facility] - Neurology - [place] #1 [place] [address] Favian Blanton MD #2 [place] [address] Medication Refill Social History Tobacco [...] documented as of this encounter Care Teams Long Haul Truck Driver Relationship Specialty Start Date End Date Brina Stiles, WOOD CASKET MAKER, CIVIL DRAFTING TECHNICIAN [address] [place] [address] PCP - General Family Medicine 01/03/20 09/27/20 Gwen Cisneros MD [address] [place] [address] PCP - General Family Medicine 09/28/20 06/25/23 Christiano Camacho, PAC [address] [place] [address] PCP - General Physician Masking Machine Feeder 06/26/23 01/31/24 Christiano Camacho, PAC [address] [place] [address] PCP - General Physician Masking Machine Feeder 02/05/24 Rand Field, WOOD CASKET MAKER, ELECTRICAL DESIGNER DRAFTER #2 [place] [address] Nurse Practitioner Advanced Practice Nurse 12/11/23 Favian Blanton MD #2 [place] [address] Consulting Physician Neurology 08/22/23 Juancho Smith MD #[address] [address] Consulting Physician General Surgery 05/22/24 documented as of this encounter
--- OUTSIDE RECORDS SUMMARY | 2025-06-04 00:09 | XMS_ITS | Clinical Summary ---
Author Organization [facility] Address [facility] [place] [address] Care Team Providers Care Field Professional Name Role Phone Evangelista Wakefield MD Unavailable +[phone] Stanford Meza MD Unavailable [phone] Luis Aden MD Unavailable +[phone] Naima Sarkar MD Primary Care Provider [phone] Allergies Active Allergy Reactions Criticality Noted Date [...] CDT - 04/12/2025 1:37 AM CDT Emergency [facility] Emergency Department [address] [address] Kevon Solis MD Nonintractable headache, unspecified chronicity pattern, unspecified headache type (Primary Dx); Neck pain Discharge Disposition: Discharge to home or self care 04/02/2025 Telephone [facility] Neurosurgery Center with [facility] [address] Medical Office Building [address] [place] [address] Brandon Saldana MA 03/28/2025 Telephone [facility] Scheduling [address] [place] [address] Eleonora Baltazar from Last 3 Months Surgical History Surgery Date Site/Laterality Comments HERNIA REPAIR Hernia repair SECTION section GASTRIC BYPASS 2008 Gastric bypass HERNIA REPAIR 2003 Hernia repair SECTION 2001 section OTHER SURGICAL HISTORY abdominal hernia surgery x 2 OTHER SURGICAL HISTORY 2013 repair recurrent incarcerated ventral incisional hernia OTHER SURGICAL HISTORY 2012 Complex I & D abd. wall abscess [place] LAPAROSCOPY SURG CHOLECYSTECTOMY Cholecystectomy Laparoscopic - (Added [...] on file Legal Sex Female 12:40 AM MARBLE CLEANER Gender Identity Female 08/09/2023 6:35 PM CDT [...] 162.6 cm (5' 4) 10/03/2024 9:11 AM MARBLE CLEANER Body Mass Index 31.76 10/03/2024 9:11 AM MARBLE CLEANER Plan of Treatment Health Maintenance Due Date [...] this topic Medical Devices Implanted Type Area Sales Development Consultant Device Identifier Shelf Expiration Date Model / Serial / Lot [employer] Graft Tissue Accelular Matrix Dermis Regn Medium Alloderm Select 4x7cm Rtu [id number] - [id number] Implanted:Qty: 1 on 09/29/2023 by Luis Aden MD at [facility] N/A: Dura [employer] [id number] 07/13/2025 [id number] / / [id number] Procedures Procedure Name Priority Date/Time Associated [...] sult from Last 3 Months Insurance [facility] Advance Directives For more information, please contact: [phone] * Full Code (Latest Code Status on File) Date Activated Date Inactivated Comments 09/29/2023 12:17 PM 10/01/2023 6:01 PM * Full Code Date Activated Date Inactivated Comments 05/31/2021 8:48 PM 06/05/2021 5:13 PM * Full Code Date Activated Date Inactivated Comments 05/11/2018 1:16 AM 05/15/2018 11:47 PM Care Teams Field Professional Relationship Specialty Start Date End Date Naima Sarkar MD [address] [place] [address] PCP - General Internal Medicine 12/13/24 Evangelista [place] MD Shampooer Obstetrics and Gynecology 05/11/18 Stanford Meza MD Surgeon General Surgery 06/05/21 Luis Aden MD Consulting Physician Neurosurgery 07/26/23
[2025-06-04] MEDS: ACETAMINOPHEN 500 MG TABLET 1000 MG PO (01:05)
[2025-06-04] MEDS: diazePAM INJ (*CRX) 10 MG/2 ML SYRINGE 5 MG IM (01:06)
[2025-06-04 02:47] VITALS: BP 175/106; PULSE 80; RESP 16; TEMP 37; O2SAT 100
[2025-06-04] MEDS: traMADol HCL (*CRX) 50 MG TABLET PO (02:50)
== END 2025-06-04 02:50 | disposition home or self-care (01) ==
PROVIDERS: Emergency Provider Physician Assistant
DX: M54.12 Radiculopathy, cervical region (principal)
CPT/HCPCS: 70450; 72125; 96360; 96372; 99284; A9270; J3360